=== PATIENT | female | born 1945 | race Caucasian/White ===

== ENCOUNTER 2018-03-02 11:54 | Inpatient (IN) | payer OTHER, SELFPAY ==
[2018-02-16 08:49] VITALS: BMI 41.6
[2018-03-02] VITALS (17 sets, daily range): BP systolic 126–169; BP diastolic 77–91; PULSE 88–99; RESP 10–20; TEMP 36.1–37.1; O2SAT 91–99; BMI 41.6
--- NOTE | 2018-03-02 | DI.RAD.S_ITS ---
PROCEDURE: XR LUMBAR SPINE 2-3V INDICATIONS: XLIF L1-L5 TECHNIQUE: 2 intraoperative fluoroscopic views of the lumbar spine were acquired. COMPARISON: None. FINDINGS: 2 extremely limited spot fluoroscopic images were obtained of the lumbar spine. IMPRESSION: Fluoroscopic visualization of lumbar spine. Dictated by: Senia Salvador M.D. on 03/02/2018 at 19:22 Approved by: Senia Salvador M.D. on 03/02/2018 at 19:23
[2018-03-02] MEDS: LACTATED RINGERS 1,000 ML 42 ML IV ×3 (12:35→16:49)
--- NOTE | 2018-03-02 12:40 | PM.PREOP ---
Pre-operative Note Interval Note Pre-op Check: Yes History & Physical Reviewed by Physician and Yes Exam Performed Changes: No
--- NOTE | 2018-03-02 13:37 | P.OP_ITS ---
Operative Date/Time/Diagnoses Date of procedure: 03/02/18 Time of procedure: 16:14 Pre-op diagnosis: lumbar stenosis with radiculopathy lumbar scoliosis Post-op diagnosis: same Procedure & Clinicians Procedure: L1-2, L2-3, L3-4, L4-5 anterior fusion with cages Same procedure as scheduled: Yes Indications: [age] year old female with intractable pain from stenosis. They had failed conservative management and requested operative intervention. Risks and benefits of surgery were discussed and appropriate consents were obtained. Surgeon: Shon Roper Optical Effects Camera Operator: Lindsey Richardson Anesthesia Type: General Operative Notes Findings: none Closure Type: primary Specimen(s): none sent Applied: catheter Estimated Blood Loss (mL): 20 Blood products transfused: none Procedure in detail: Patient was brought to the operating room and intubated on the table. Time-out was performed. They were then rolled over to the lateral decubitus position with the [id number]. The table was bent and they were taped down in the correct position. X-rays were taken to confirm a true AP and lateral. Preoperative antibiotics were given. The right flank was prepped and draped in standard sterile fashion. Using fluoroscopy, a 3 cm incision was made above the iliac crest. We bluntly dissected down with Metzenbaum scissors and split the 3 abdominal muscle layers. We dissected out the retroperitoneal space and using finger guidance, brought our 1st dilator down to the psoas muscle. Using neuromonitoring and fluoroscopy, we placed it through the psoas onto the L4-5 disc space in an anterior position and gradually pulled the dilator posteriorly along the disc space. We placed our guidewire and measured our depth for the retractor. We then dilated with the next 2 dilators and then placed our retractor over the dilators. Position was confirmed with fluoroscopy and the retractor was locked down to the bar. We opened up the retractor and checked with neuro monitoring. We then placed the su and again checked with neuro monitoring. The retractor was opened further and the ALL retractor was placed. An annulotomy was performed. We then performed a complete diskectomy with ring curette, pituitary, box osteotome. A Kauffman was advanced across the disc space under fluoroscopy to release the lateral annulus on the opposite side. We then used sequentially larger trials and confirmed under fluoroscopy. An XLIF cage was packed with Osteocell bone graft and impacted into the L4-5 disc space with fluoroscopy for the anterior fusion at this level. The wound was irrigated. The retractor was closed down. The su was removed. We carefully removed the retractor with direct visualization to make sure there was no neurovascular or abdominal injury. We then repeated the procedure at L1-2. Again we use dilation, opening retractor, complete diskectomy with lateral release, and placement of the cage packed with bone graft for the anterior fusion at L1-2. We went down to L2-3 at that point. We have the same procedure with dilation, opening the retractor, diskectomy with lateral release, and placement of the cage packed with bone graft for the anterior fusion at L2-3. The cage was not advancing very far and it actually broke approximately [address]. We removed the lateral fragments and was still well contained within the disc space and had enough support that I did not want to try removing it.. We then went down to L3-4 and again did dilation, retractor, diskectomy, release, and placement of the cage packed with bone graft for the anterior fusion at L3-4. The wound was irrigated at every level. We carefully removed the retractors at every level. Final x-rays were taken. The muscle fascia was closed, superficial tissue was closed. The skin was closed. Sterile dressing was placed. The patient was then rolled over, extubated, brought to the recovery room with no complications. Complications: none Condition: stable Disposition: PACU Plan for aftercare: Inpatient. Up with physical therapy as tolerated. Plan to return to operating room on for posterior portion of surgery.
[2018-03-02] MEDS: CEFAZOLIN 2 GM/100 ML FROZ.PIGGY IV ×2 (13:48→20:56)
[2018-03-02] MEDS: SODIUM CHLORIDE 0.9% 1,000 ML, GENTAMICIN 80 MG IRR (14:34)
[2018-03-02] MEDS: BUPIVACAINE 0.5% (PF) 20 ML, BUPIVACAINE LIPOSOME 266 MG INJ (14:34)
--- NOTE | 2018-03-02 14:44 | SUR.OPER ---
Left lateral on padded OR table. Head on pillow, gel axillary roll, pillow to support right arm. Legs flexed, pillows between legs, gel pad under down leg and ankle. Multiple passes of 3 inch cloth tape across shoulder, hip, upper and lower legs to secure patient on OR table.
[2018-03-02] MEDS: THROMBIN (BOVINE) 5,000 UNIT VIAL 5000 UNIT TOP (14:57)
--- NOTE | 2018-03-02 17:06 | SUR.PHASEI ---
verbal order to infuse 500 cc LR open wide in recovery
[2018-03-02] MEDS: LORazepam 2 MG/ML SYRINGE 0.25 MG IV ×2 (17:30→18:45)
--- NOTE | 2018-03-02 18:08 | RT ---
Addendum entered by Nader Posey, RT 03/02/18 18:30: Pt placed to Hospital CPAP unit, 10 lpm o2 bleed in. Resp rate 10, pjlse 89, O2 sats 98%. Pt still slightly responsive. Nasal airway remains, Nurse Sadaf remains vigilant at bedside. Original Note: Called to PACU by Nurse Sadaf and Nurse Hawthorne, pt needs CPAP. Pt is post op back surgery. Upon entering, pt's has loud sonorous snore, with moderate airway obstruction. Needs jaw thrust. Pt wakes slightly to verbal stimuli, but does not respond appropriately. Nasal airway inserted to L nare (7.0) without difficulty. Resp rate 10-14 Nurse Hawthorne contacted duty anesthesiologist, Dr. Gibbons to inform and obtain order. Put CPAP, per Nurses. Pt placed to auto with 10 lpm bleed in.
--- NOTE | 2018-03-02 18:25 | SUR.PHASEI ---
Addendum entered by Berta Edwards R.N. 03/02/18 18:28: RT arrived at 1750 Original Note: RT called to bedside to place patient on cpap per order from Dr. Campos, he placed a nasal trumpet in left nare and placed patient on cpap with O2 at 15 L. patient tolerating well.
[2018-03-02] MEDS: NALOXONE 0.4 MG/ML VIAL 0.2 MG IV ×2 (19:00→19:05)
--- NOTE | 2018-03-02 20:06 | SUR.PHASEI ---
1800 spoke to Nguyen Nursing material crew supervisor prior to giving Narcan as instructed by anesthesia Regulo, as to Narcan protocol for floor patients she stated that it was fine to give Narcan then go to floor with patient, if they need more the floor nurses can give it. Patient went to floor approx 1 hour post last narcan dose . no problems noted. patient eatting ice and talking appropriately.
[2018-03-02] MEDS: LACTATED RINGERS 1,000 ML 125 ML IV (20:34)
[2018-03-03] VITALS (7 sets, daily range): BP systolic 113–137; BP diastolic 57–78; PULSE 78–97; RESP 15–22; TEMP 36.3–36.9; O2SAT 93–96
[2018-03-03] MEDS: HYDROMORPHONE 1 MG INJ 0.2 MG IV (00:02)
[2018-03-03] MEDS: HYDROCODONE/ACET 5/325 TABLET 1 TAB PO ×2 (04:48→09:39)
[2018-03-03] MEDS: LACTATED RINGERS 1,000 ML 125 ML IV (04:51)
[2018-03-03] MEDS: CEFAZOLIN 2 GM/100 ML FROZ.PIGGY IV (05:38)
[2018-03-03 07:35] LABS: Hematocrit 37.2 % (36-46); Hemoglobin 12.2 g/dL (12.0-16.0)
[2018-03-03 07:46] LABS: BUN Creatinine Ratio 13.8 (6-22); Blood Urea Nitrogen 11 mg/dL (7-17); Calcium 7.9 mg/dL (8.4-10.2); Carbon Dioxide 31 mmol/L (22-32); Chloride 101 mmol/L (98-107); Estimated Glomerular Filt Rate > 60.0 mL/min (>60); Glucose 122 mg/dL (80-110); HEMOLYSIS 24 (0-50); Potassium 3.6 mmol/L (3.4-5.1); Sodium 143 mmol/L (137-145)
--- NOTE | 2018-03-03 08:12 | PM.PNPO.1 ---
Subjective Date Patient Seen: 03/03/18 Time Patient Seen: 08:12 Interval history: Pain not bad. Sore rolling over. No more vomiting but still some nausea and anxiety about vomiting. Exam Vital Signs (past 8 hours): - 03/03/18 00:33 03/03/18 04:00 Temperature 98.4 F 97.6 F Pulse Rate 97 H 93 H Respiratory Rate 22 20 Blood Pressure 126/78 125/70 Pulse Oximetry 93 94 Oxygen Delivery Method Nasal Cannula Oxygen Flow Rate 3 Const Orientation: alert and oriented x3 Back/Spine/Pelvis Other: dressing CDI. 5/5 motor BLE Objective Labs Result Diagrams: 03/03/18 06:43 03/03/18 06:43 Labs: Laboratory Results - last 24 hr 03/03/18 03/03/18 06:43 06:43 Hgb 12.2 Hct 37.2 Sodium 143 Potassium 3.6 Chloride 101 Carbon Dioxide 31 BUN 11 Creatinine 0.80 Estimated GFR > 60.0 BUN/Creatinine Ratio 13.8 Glucose 122 H Calcium 7.9 L Assessment & Plan Post-op Postoperative Procedures Operation Date: 03/02/18 14:00 Actual Procedures Side Surgeon p L1-2,L2-3,L3-4,L4-5 Anterior Instru. Fusion(XLIF) Right Shon Roper MD Stable after day one of staged front/back scoliosis surgery. She's doing well for now. Up and mobilize with PT. Plan to return to OR tomorrow for L1-S1 posterior fusion and laminectomies. Operation Date: 03/04/18 07:45 <No data on this case meets the specified criteria>
[2018-03-03] MEDS: ONDANSETRON 4 MG/2 ML INJ IV (08:52)
[2018-03-03] MEDS: CELECOXIB 200 MG CAPSULE PO ×2 (09:40→21:47)
[2018-03-03] MEDS: DOCUSATE 100 MG CAPSULE PO ×2 (09:40→21:47)
[2018-03-03] MEDS: hydroCHLOROthiazide 25 MG TABLET PO (09:40)
--- NOTE | 2018-03-03 11:55 | PT.IIE ---
Current Diagnoses Scoliosis, unspecified (03/02/18) Spinal stenosis, lumbar region with neurogenic claudication (03/02/18) Surgery Performed Operation Date: 03/02/18 14:00 Actual Procedures p L1-2,L2-3,L3-4,L4-5 Anterior Instru. Fusion(XLIF)(Right) - Shon Roper MD Operation Date: 03/04/18 07:45 <No data on this case meets the specified criteria> Surgical History (Last Updated 02/16/18 @ 09:13 by Tammie Crandall RN) History of colonoscopy (Acute) Hx of tonsillectomy (Acute) Medical History (Last Updated 02/16/18 @ 09:13 by Tammie Crandall RN) Arthritis (Acute) Edema (Acute) HTN (hypertension) (Acute) Kidney stones (Acute) Numbness (Acute) Pneumonia (Acute) Rosacea (Acute) Sciatica (Acute) Scoliosis (Acute) Physical Therapy Inpatient Evaluation/Re-Eval M1 PT/OT-IP Prior Functional Status Start: 03/03/18 11:37 Freq: Status: Active Protocol: Document 03/03/18 11:38 AMH (Rec: 03/03/18 11:54 [facility] [id number]) Medical Review Prior Functional Status Medical History Reviewed Yes Diet/Fluid Consistency Regular Prior Functional Level (Other details) The patient is a 72 year old female who has been in chronic pain for years with her low back Social History Household Members none Living Arrangements House Number of Floors (Floors) Two Floors M2 PT-IP Current Condition Start: 03/03/18 11:37 Freq: Status: Active Protocol: Document 03/03/18 11:38 AMH (Rec: 03/03/18 11:54 [facility] [id number]) Physical Therapy Current Condition Current Condition Evaluation Date 03/03/18 Precautions Lumbar Precautions No Twisting Other Precautions log roll Weight Bearing Status Weight Bearing Status Full Weight Bearing M3 PT-IP Subjective Start: 03/03/18 11:37 Freq: Status: Active Protocol: Document 03/03/18 11:38 AMH (Rec: 03/03/18 11:54 [facility] [id number]) Subjective Physical Therapy Visit Type Type Initial Evaluation Visit Start Time 10:50 Visit Stop Time 11:20 Total Visit Minutes 30 Therapy Pain Assessment Pain When Pain Assessed pain 1/10 Pain Present Pain Present Pain Reported M4 PT-IP Mobility and Gait Start: 03/03/18 11:37 Freq: Status: Active Protocol: Document 03/03/18 11:38 AMH (Rec: 03/03/18 11:54 [facility] [id number]) PT-Bed Mobility Assessment Rolling Type of Rolling Log Rolling Supine to Sit Supine to Sit Moderate Assistance Scooting Scooting Up and Down in Bed Minimal Assistance PT-Transfer Assessment Sit to and From Stand Sit to and from Stand Contact Guard Assistance Equipment Transfer Assistive Device Gait Belt Front Wheeled Walker Transfer Ability Level of Assist Minimal Assistance Comments Mobility Comments The patient was able to follow all commands for log roll to the left, (the incision is on her right side) and was min A for transfers Gait Assessment Gait Gait Assistance Required: Contact Guard Assist Distance (Feet) 4 Able to Maintain Weight Bearing Status Yes During Gait Assistive Devices Assistive Device Front Wheeled Walker Orthotic/Prosthetic Devices or Brace: No M5 PT-IP Objective Assessments Start: 03/03/18 11:37 Freq: Status: Active Protocol: Document 03/03/18 11:38 AMH (Rec: 03/03/18 11:54 [facility] [id number]) Gross Range of Motion Lower Extremity ROM Assessment Right Impaired Impairments decreased Right leg hip and knee flexion due to pain from incision on the right Other Assessments Other Other Assessments The patient was educated on log rolls and transfered from bed to the bedside chair with min A. She will return to surgery tomorrow for posterior fusion. The patient will then go home with a friend for a week. She lives in [place] [id number] PT-IP Treatment Start: 03/03/18 11:37 Freq: Status: Active Protocol: Document 03/03/18 11:38 AMH (Rec: 03/03/18 11:54 [facility] [id number]) Physical Therapy Treatment Exercises Exercises Ankle Pumps Quad Sets Heel Slides Education Education Provided Precautions Safety M7 PT-IP Assessment and Plan Start: 03/03/18 11:37 Freq: Status: Active Protocol: Document 03/03/18 11:38 AMH (Rec: 03/03/18 11:54 [facility] [id number]) PT Summary Assessment and Plan Potential Rehabilitation Potential Excellent Status of Condition at Evaluation Stable Summary Impairments Pain ROM Strength Bed Mobility Transfers Activity Tolerance Assessment Summary 72 year old female s/p anterior fusion from L1-L5, she will return to surgery tomorrow for posterior repair. She was able to perform log rolling today and demonstrate good form with fww for transfers. She anticipates going home with a friend for a week following surgery. Goals Bed Mobility Goal Independent Transfer Goal Standby Assistance Gait Goal Contact Guard Assistance Gait Distance 50 feet Days to Meet Goals 3 Frequency of Treatment Frequency Of Treatment Twice a Day Treatment Plan Physical Therapy Treatment Plan Bed Mobility Training Transfer Training Gait Training Therapeutic Exercise Post Op Education Recommendations To Nursing Amount of Assist Needed 1 Person Assist Discharge Recommendations PT Discharge Recommendations Home with Assistance Equipment Needed for Home Before fww Discharge
--- NOTE | 2018-03-03 13:32 | OT.IP.TRT ---
Current Diagnoses Scoliosis, unspecified (03/02/18) Spinal stenosis, lumbar region with neurogenic claudication (03/02/18) Surgery Performed Operation Date: 03/02/18 14:00 Actual Procedures p L1-2,L2-3,L3-4,L4-5 Anterior Instru. Fusion(XLIF)(Right) - Shon Roper MD Operation Date: 03/04/18 07:45 <No data on this case meets the specified criteria> Occupational Therapy Treatment Note M3 OT- IP Subjective and Pain Start: 03/03/18 13:30 Freq: Status: Active Protocol: Document 03/03/18 13:30 PJM (Rec: 03/03/18 13:32 PJM [id number]) OT- Subjective Occupational Therapy Visit Type Type Administrative Note Visit Start Time 13:30 Notes OT referral received on pt s/p L1-5 anterior fusion. Pt to return to surgery tomorrow for stage 2 surgery for posterior fusion. Will hold OT evaluation of self care skills until after 2nd surgery as medical status permits. No charge.
--- NOTE | 2018-03-03 13:49 | CM.DANOTE ---
Discharge Planning/Care Management DCP: assessment: Case received, EMR reviewed and met this morning with pt. Introduced self and role. Pt is a 72 year old female who admitted yesterday for a planned spinal surgery: in 2 parts. Surgeon: Dr. Roper Payer: Yassine ADAMS. Part 2 of the surgical process is planned for tomorrow. Pt identifies her post hospital plan as home with a friend to help. OT and PT are ordered. P: follow as POC including therapy unfold to assist with d/c issues and options that may arise, noting pt does plan for home with friend. CM Discharge Assessment Start: 03/03/18 13:48 Freq: Status: Active Protocol: Document 03/03/18 13:48 ITV (Rec: 03/03/18 13:49 ITV [id number]) Discharge Planning Assessment History Provided By Patient Medical Record Prior Living Arrangements House Household Members none Whiteboard Updated in Patient Room with Yes name and ext. # of Yarn Hauler Review Status In Process Next Review Type Continued Stay Review Pre-Anesthesia Assessment Start: 02/16/18 08:49 Freq: Status: Complete Protocol: Document 02/16/18 08:49 CAB (Rec: 02/16/18 09:45 CAB [id number]) Pre-Anesthesia Assessment Patient Information Reviewed Via Phone Assessment Assessment Completed With Patient Lab Results BMP/CMP CBC EKG Primary Care Provider Lina aBlderas Medical Clearance Received Yes Seen Specialist in Last 12 Months Yes Specialist Seen Orthopedist Comment PCP note to med records to be scanned to chart Primary Language Kosovan Rug Repairer Required No Height 166.37 cm Weight 115.212 kg Body Mass Index (BMI) 41.6 Hearing Ability Normal Visual Assist Glasses Dentition Type Teeth, Natural Present Barriers to Learning Visual Hx Anesthesia Reactions No Hx Family Anesthesia Reaction No Hx Malignant Hyperthermia No Hx Blood Transfusions No Anesthesia Review Requested No Gelatin Dynamite Packing Operator No alcohol intake current alcohol intake frequency a few times a month Smoking Status Never smoker Substance Use Type does not use Pain Present Pain Reported Musculoskeletal Symptoms Abnormal Gait Difficulty Walking Muscle Weakness Numbness Radiating Pain into Limb History of Falling (Recent or History of No ) Patient is completely paralyzed or No completely immobile Prosthesis or Orthotic Device Cane Mental Status Oriented to own ability Is patient on oxygen? No Does patient have SANTOS/SOB Yes: r/t to deconditioning recently w/back pain Hx Sleep Apnea No Suspected Sleep Apnea No Currently Taking a Beta Robbie No Can You Climb a Flight of Stairs Without No: r/t to deconditioning SOB recently w/back pain Hx Chest Pain No Hx SOB Yes: r/t to deconditioning recently w/back pain Hx Syncope or Dizziness No Anti-Coagulant Therapy No Has a Correctional Officer Sergeant No Cardiac Testing No Hx Pacemaker/ICD No Pacemaker Rep Required? No Cardiac Clearance Received Not Applicable Diet Type At Home Regular dysphagia No Bladder Pattern Frequency Incontinent Nocturia Urgency Urinary Catheter Present No Hx Urinary Self Catheterization No Diabetes No Patient No Lactating No Hx Drug Resistant Organism No Presence of External or Internal Medical No Devices Have you traveled outside the [facility] in the last 30 days? Marital Status Lives With none Prior Living Arrangements House Number of Floors (Floors) Two Floors Number of Stairs To Enter/Railing? 10 stairs, railing present Support System Friend(s) Patient Discharge Plan Description Other Comment Friend will stay w/pt to assist w/care, will stay at the [facility] home Feels Safe in Current Environment Yes Been Physically Hurt or Threatened By a No Person in Current Environment Do you have thoughts of harming yourself None or others? Are you currently considering suicide? No Do you have a plan to hurt yourself or No Plan others? Do You Have Any Spiritual Beliefs That No May Affect Your HC Choices? Do You Have Any Cultural Practices That No May Affect Your HC Choices? Spiritual Referral None Comment Hindu Who Can We Speak to About Patient's Care Family, friends Identifying Code for Release of Patient Declines to issue Information Health Care Proxy/Next of Kin Dino Kaplan (brother) Health Care Proxy Emergency Contact Name Dino Kaplan (brother) Emergency Contact Advance Directives? No: Information mailed to patient Requested Patient Bring Advanced Yes Directives DOS Power of Marketing Communications Manager No PAC Instructions Durable medical equipment Medications to take/avoid Nasal antibiotic No ETOH/petroleum product on skin DOS NPO Post-op transportation Pre-surgical wash Sensory aids Sturdy shoes/comfortable clothes Do not bring valuables and remove jewelry
--- NOTE | 2018-03-03 14:35 | PT.IPTN ---
Current Diagnoses Scoliosis, unspecified (03/02/18) Spinal stenosis, lumbar region with neurogenic claudication (03/02/18) Surgery Performed Operation Date: 03/02/18 14:00 Actual Procedures p L1-2,L2-3,L3-4,L4-5 Anterior Instru. Fusion(XLIF)(Right) - Shon Roper MD Operation Date: 03/04/18 07:45 <No data on this case meets the specified criteria> Physical Therapy Treatment Note M2 PT-IP Current Condition Start: 03/03/18 11:37 Freq: Status: Active Protocol: Document 03/03/18 11:38 AMH (Rec: 03/03/18 11:54 AMH [email or web address]) Physical Therapy Current Condition Current Condition Evaluation Date 03/03/18 Precautions Lumbar Precautions No Twisting Other Precautions log roll Weight Bearing Status Weight Bearing Status Full Weight Bearing M3 PT-IP Subjective Start: 03/03/18 11:37 Freq: Status: Active Protocol: Document 03/03/18 14:35 GGD (Rec: 03/03/18 15:58 GGD [id number]) Subjective Physical Therapy Visit Type Type Treatment Note Visit Start Time 14:20 Visit Stop Time 14:35 Total Visit Minutes 15 Number of LOAN FUNDER Visits 1 Physical Therapy Visit Comments Patient Comments Pt states she would like to stay in the chair. Therapy Pain Assessment Pain When Pain Assessed At Rest Pain Present Pain Present Pain Reported M4 PT-IP Mobility and Gait Start: 03/03/18 11:37 Freq: Status: Active Protocol: Document 03/03/18 14:35 GGD (Rec: 03/03/18 15:58 GGD [id number]) PT-Transfer Assessment Sit to and From Stand Sit to and from Stand Contact Guard Assistance Equipment Transfer Assistive Device Gait Belt Front Wheeled Walker Orthotic/Prosthetic Devices or Brace: No Transfers Transfer Destination Chair Transfer Technique y Transfer Ability Level of Assist Minimal Assistance Gait Assessment Gait Gait Assistance Required: Contact Guard Assist Distance (Feet) 50 Able to Maintain Weight Bearing Status Yes During Gait Assistive Devices Assistive Device Front Wheeled Walker Orthotic/Prosthetic Devices or Brace: No Gait Deviations General Gait Pattern Antalgic Decreased Stride Length Flexed Trunk Factors Limiting Gait Function Factors Limiting Gait Function Decreased Activity Tolerance Decreased Strength Pain M5 PT-IP Objective Assessments Start: 03/03/18 11:37 Freq: Status: Active Protocol: Document 03/03/18 11:38 AMH (Rec: 03/03/18 11:54 AMH [email or web address]) Gross Range of Motion Lower Extremity ROM Assessment Right Impaired Impairments decreased Right leg hip and knee flexion due to pain from incision on the right Other Assessments Other Other Assessments The patient was educated on log rolls and transfered from bed to the bedside chair with min A. She will return to surgery tomorrow for posterior fusion. The patient will then go home with a friend for a week. She lives in [place] [id number] PT-IP Treatment Start: 03/03/18 11:37 Freq: Status: Active Protocol: Document 03/03/18 14:35 GGD (Rec: 03/03/18 15:58 GGD [id number]) Physical Therapy Treatment Education Education Provided Precautions M7 PT-IP Assessment and Plan Start: 03/03/18 11:37 Freq: Status: Active Protocol: Document 03/03/18 14:35 GGD (Rec: 03/03/18 15:58 GGD [id number]) PT Summary Assessment and Plan Summary Assessment Summary Pt need cues for mobility. She was able to increase her gait distance. She had heavy use of UE on FWW with gait. She had mild unsteadiness with gait. Frequency of Treatment Frequency Of Treatment Twice a Day Treatment Plan Physical Therapy Treatment Plan Bed Mobility Training Transfer Training Gait Training Therapeutic Exercise Post Op Education Recommendations To Nursing Amount of Assist Needed 1 Person Assist Discharge Recommendations PT Discharge Recommendations Home with Assistance
[2018-03-03] MEDS: SENNOSIDES 8.6 MG TABLET 17.2 MG PO (21:47)
[2018-03-04] VITALS (20 sets, daily range): BP systolic 106–137; BP diastolic 59–87; PULSE 16–117; RESP 15–20; TEMP 36.4–37.7; O2SAT 92–98; BMI 41.6
[2018-03-04] MEDS: LACTATED RINGERS 1,000 ML 125 ML IV ×4 (07:00→17:17)
--- NOTE | 2018-03-04 07:02 | SUR.HOLD ---
PT HAS SILVA, SECURELY STRAPPED TO LEFT UPPER THIGH, YELLOW CLEAR URINE 125CC,
--- NOTE | 2018-03-04 07:28 | PM.PREOP ---
Pre-operative Note Interval Note Pre-op Check: Yes History & Physical Reviewed by Physician and Yes Exam Performed Changes: No
[2018-03-04] MEDS: APREPITANT 40 MG CAPSULE PO ×2 (07:50)
[2018-03-04] MEDS: CEFAZOLIN 2 GM/100 ML FROZ.PIGGY IV ×2 (08:10→18:16)
--- NOTE | 2018-03-04 08:46 | SUR.OPER ---
Prone on spine table, head in foam head support, padded chest and pelvic supports, gel pad at knees, lower legs supported by pillows; nipples, genitalia and toes free of pressure, arms secured on foam padded arm boards at <90 degrees abduction. Tape over blanket at thigh secured to table.
--- NOTE | 2018-03-04 09:04 | SUR.OPER ---
in room delay due to patient having issue with medication in preop
[2018-03-04] MEDS: SODIUM CHLORIDE 0.9% 1,000 ML, GENTAMICIN 80 MG IRR ×2 (10:11→10:15)
[2018-03-04] MEDS: THROMBIN (BOVINE) 5,000 UNIT VIAL 5000 UNIT TOP (10:16)
--- NOTE | 2018-03-04 11:52 | PT.IPTN ---
Current Diagnoses Scoliosis, unspecified (03/02/18) Spinal stenosis, lumbar region with neurogenic claudication (03/02/18) Surgery Performed Operation Date: 03/02/18 14:00 Actual Procedures p L1-2,L2-3,L3-4,L4-5 Anterior Instru. Fusion(XLIF)(Right) - Shon Roper MD Operation Date: 03/04/18 07:45 Actual Procedures p L1-2,L2-3,L3-4,L4-5,L5-S1 Posterior Instru. Fusion w/Bone Graft, L1-S1 Laminectomies - Shon Roper MD Physical Therapy Treatment Note M2 PT-IP Current Condition Start: 03/03/18 11:37 Freq: Status: Active Protocol: Document 03/03/18 11:38 [facility] (Rec: 03/03/18 11:54 [facility] [id number]) Physical Therapy Current Condition Current Condition Evaluation Date 03/03/18 Precautions Lumbar Precautions No Twisting Other Precautions log roll Weight Bearing Status Weight Bearing Status Full Weight Bearing M3 PT-IP Subjective Start: 03/03/18 11:37 Freq: Status: Active Protocol: Document 03/04/18 11:49 GGD (Rec: 03/04/18 11:51 GGD [id number]) Subjective Physical Therapy Visit Type Notes Pt in surgery, will wait for new orders. Protocol: Document 03/03/18 14:35 GGD (Rec: 03/03/18 15:58 GGD [id number]) Physical Therapy Treatment Education Education Provided Precautions M7 PT-IP Assessment and Plan Start: 03/03/18 11:37 Freq: Status: Active Protocol: Document 03/04/18 11:49 GGD (Rec: 03/04/18 11:51 GGD [id number]) PT Summary Assessment and Plan Frequency of Treatment Frequency Of Treatment Discharge
[2018-03-04] MEDS: BUPIVACAINE 0.5% (PF) 4 ML, MORPHINE-PF 4 MG, BUTORPHANOL 1 MG, fentaNYL 100 MCG INJ (12:32)
--- NOTE | 2018-03-04 13:32 | DI.RAD.S_ITS ---
PROCEDURE: XR LUMBAR SPINE 2-3V INDICATIONS: L1-S1 POSTERIOR FUSION WITH L5-S1 TLIF FINDINGS: 4 limited intraoperative fluoroscopically stored images of the lumbar spine were obtained for intraoperative hardware localization purposes. These images are not meant for diagnostic purposes. Intraoperative findings related to a L1-S1 posterior lumbar fusion procedure are present. IMPRESSION: Intraoperative images obtained during the patient's lumbar fusion procedure. Dictated by: Dilip Juarez M.D. on 03/04/2018 at 13:46 Approved by: Dilip Juarez M.D. on 03/04/2018 at 13:49
[2018-03-04] MEDS: VANCOMYCIN 1,000 MG VIAL 1000 MG TOP (13:38)
--- NOTE | 2018-03-04 14:11 | P.OP_ITS ---
Operative Date/Time/Diagnoses Date of procedure: 03/04/18 Time of procedure: 13:59 Pre-op diagnosis: lumbar stenosis with radiculopathy lumbar scoliosis Post-op diagnosis: same Procedure & Clinicians Procedure: L1-2, L2-3, L3-4, L4-5 posterior fusion L5-S1 TLIF (post/post innerbody fusion) with cage L1, L2, L3, L4, L5, S1 screws L1-2, L2-3, L3-4, L4-5, L5-S1 laminectomy Use of microscope Iliac crest bone graft aspirate Placement of epidural catheter Same procedure as scheduled: Yes Indications: [age] year old female with intractable pain from stenosis. They had failed conservative management and requested operative intervention. Risks and benefits of surgery were discussed and appropriate consents were obtained. She had stage I of her operation 2 days ago and returned today for the posterior half. Surgeon: Shon Roper Anesthesia Type: General Operative Notes Findings: None Closure Type: primary Specimen(s): none sent Implants & Drains: NuVasive Reline screws and MAS PreCept screws Globus Rise cage Applied: catheter Estimated Blood Loss (mL): 500 Blood products transfused: none Procedure in detail: The patient was brought to the operating room and intubated on the table. A time-out was performed. They were then rolled over to the well-padded John table in the prone position. Preoperative antibiotics were given. The back was prepped and draped in the standard sterile fashion. A 15 cm incision was made in the midline. We dissected down the left sided paraspinals to expose the lamina out over the facets to the transverse processes. A marker was placed to confirm positioning. A bur was used to decorticate the junction of the transverse process and facet. We then advanced a gear shifter down the left pedicle of L1 using neuromonitoring. We then checked with a ball probe for a floor and four carlton. We then tapped and again checked with a ball probe. A bur was used to decorticate the transverse process and the Reline open screw was placed into the pedicle. The same technique was used to place screws in the L2, L3, L4, L5, and S1 pedicles. A jeff was placed and locked down at every level except for S1 so we could distract over it. We brought in the microscope. Using a combination of bur and Kerrison rongeur a laminectomy was performed from the left side at L5-S1. We cleared over past the midline and carefully depressed the dura until we were able to decompress the opposite side. We cleared out the neural foramen. She was still extremely tight and we had to perform a near complete facetectomy to open this up. This completed the laminectomy at L5-S1. This was separate and distinct from the TLIF approach as we were decompressing the canal and the nerves. We then began the TLIF prep. We finished off the facetectomy on this side at L5 -S1. We carefully cleaned up the remainder of the foramen until we could easily retract the exiting root as well as clearing medially below the dura and expose the disc space. The disc was prepped with bipolar and then an annulotomy was performed. We performed a diskectomy using a combination of paddles, tyesha, Kerrison, and curettes. We distracted the disc using a paddle as well as distracting across the screws and locked the S1 screw in an open position. We then filled the disc space with Osteocell bone graft. We then placed the globus Rise cage under fluoroscopy and then filled this in with more bone graft. The distraction across the screws was released and the S1 screw was locked down permanently. This completed the posterior interbody fusion portion of the TLIF at L5-S1. She was still tight and neural foramen from the posterior osteophyte off of L5. This was removed with a osteotome and Kerrison rongeur and then the nerve root was completely free. We did performed a left-sided laminectomy at L4-5, L3-4, L2-3, and L1-2. This was done with a bur and Kerrison rongeurs. We carefully retracted and cleared out the neural foramen, although they were much more open after our anterior fusion from 2 days ago. We carefully depress the dura and reach across and removed the ligamentous and facet thickening on the opposite side. At the end we could run the ball probe cephalad caudally and out the foramen and everything was opened. The wound was copiously irrigated. A small stab incision was made over the PSIS. We used a Jamshidi needle to aspirate several mL of bone marrow from the pelvis. This was mixed with the remaining Osteocell and combined with all of the locally harvested bone graft as well as 30 cc of bone chips and placed in the posterolateral gutter for the posterior fusion of the TLIF at L5-S1 and a posterior fusion from L1 through L5. An epidural catheter was then placed in the spinal canal by carefully depressing the dura and advancing it 6 cm cephalad under the remaining lamina without resistance. The muscle fascia was closed. The catheter was then injected with a solution containing 4 mL of 0.5% Marcaine, 1 mg Stadol, 4 mg Duramorph, and 100 mcg of fentanyl. This was injected without resistance and the catheter was pulled. We then used fluoroscopy and made another 15 cm longitudinal incision now over on the right side. We used Bovie to split down to the fascia. We then percutaneously placed Jamshidi needles down the right pedicles of L1 through S1. It was switched out to guidewires. We tapped and then placed our MAS Precept screws also with monitoring and fluoro down the right pedicles of L1 through S1. We then placed a jeff and locked it down. Final x-rays were taken. The wound was irrigated and the fascia was closed. Vancomycin powder was placed in the wounds. The superficial and skin were closed. A sterile dressing was placed. The patient was then rolled over extubated and brought to recovery room without complications. Complications: none Condition: stable Disposition: PACU Plan for aftercare: Inpatient. Up with physical therapy. Anticipate 3-4 more days in the hospital
--- NOTE | 2018-03-04 16:29 | SUR.PHASEI ---
Pt d/c'd from Phase I at 1612. Report given to JESUS Carter on acute care floor. Bedside update given and wound site checked with Emma. Pt hemodynamically stable upon transfer to acute care floor. IV team was contacted by acute care floor and they are aware that order for PICC was placed today by Dr Roper.
[2018-03-04] MEDS: GABAPENTIN 300 MG CAPSULE PO (20:25)
[2018-03-04] MEDS: hydroCHLOROthiazide 25 MG TABLET PO (20:25)
[2018-03-04] MEDS: CELECOXIB 200 MG CAPSULE PO (20:41)
[2018-03-04] MEDS: HYDROMORPHONE 1 MG INJ 0.2 MG IV (20:57)
[2018-03-05] VITALS (11 sets, daily range): BP systolic 105–119; BP diastolic 57–66; PULSE 80–94; RESP 16–24; TEMP 36.5–36.9; O2SAT 95–100
[2018-03-05] MEDS: CEFAZOLIN 2 GM/100 ML FROZ.PIGGY IV (00:43)
[2018-03-05] MEDS: LACTATED RINGERS 1,000 ML 125 ML IV (02:21)
--- NOTE | 2018-03-05 06:11 | PC.NURSE ---
pt A&OX3. tolerating fluids. denied dizziness or lightheadedness. Urine dark andra color, 225cc out. Dressing to lower back cdi. R. arm edematous, arm wrap w/warm blanked, elevated w/pillow.
[2018-03-05 07:19] LABS: Hematocrit 33.3 % (36-46); Hemoglobin 10.7 g/dL (12.0-16.0)
[2018-03-05 07:27] LABS: BUN Creatinine Ratio 18.8 (6-22); Blood Urea Nitrogen 15 mg/dL (7-17); Calcium 7.6 mg/dL (8.4-10.2); Carbon Dioxide 29 mmol/L (22-32); Chloride 103 mmol/L (98-107); Estimated Glomerular Filt Rate > 60.0 mL/min (>60); Glucose 112 mg/dL (80-110); HEMOLYSIS 15 (0-50); Potassium 3.7 mmol/L (3.4-5.1); Sodium 140 mmol/L (137-145)
--- NOTE | 2018-03-05 08:13 | PM.PNPO.1 ---
Subjective Date Patient Seen: 03/05/18 Time Patient Seen: 08:13 Interval history: Pain is slowly creeping up to about 4/10, all across the back. No nausea Exam Vital Signs (past 8 hours): - 03/05/18 02:31 03/05/18 04:47 03/05/18 06:20 Temperature 98.0 F Pulse Rate 88 86 Respiratory Rate 16 18 Blood Pressure 119/65 105/60 Pulse Oximetry 95 95 95 Fraction of Inspired Oxygen 21 Oxygen Delivery Method Nasal Cannula Oxygen Flow Rate 2 Const Orientation: alert and oriented x3 Back/Spine/Pelvis Other: Dressing clean dry intact. 5/5 motor both lower extremities Objective Labs Result Diagrams: 03/05/18 06:43 03/05/18 06:43 Labs: Laboratory Results - last 24 hr 03/05/18 03/05/18 06:43 06:43 Hgb 10.7 L Hct 33.3 L Sodium 140 Potassium 3.7 Chloride 103 Carbon Dioxide 29 BUN 15 Creatinine 0.80 Estimated GFR > 60.0 BUN/Creatinine Ratio 18.8 Glucose 112 H Calcium 7.6 L Assessment & Plan Post-op Postoperative Procedures Operation Date: 03/02/18 14:00 Actual Procedures Side Surgeon p L1-2,L2-3,L3-4,L4-5 Anterior Instru. Fusion(XLIF) Right Shon Roper MD Operation Date: 03/04/18 07:45 Actual Procedures Side Surgeon p L1-2,L2-3,L3-4,L4-5,L5-S1 Posterior Instru. Fusion w/Bone Graft, L1-S1 Laminectomies Shon Roper MD she is doing very well after the 2nd stage of her scoliosis fusion. Mobilize with physical therapy today. She has had some acute blood loss anemia associated with surgery but still in a stable range. She is very hesitant to take pain medication due to severe side effects with nausea. We will try to limit this as much as possible as well as giving her nausea medication every time.
[2018-03-05] MEDS: TRAMADOL 50 MG TABLET PO (08:40)
[2018-03-05] MEDS: DOCUSATE 100 MG CAPSULE PO ×2 (08:43→21:18)
[2018-03-05] MEDS: CELECOXIB 200 MG CAPSULE PO ×2 (08:43→21:18)
[2018-03-05] MEDS: ONDANSETRON 4 MG/2 ML INJ IV ×2 (08:51→17:17)
[2018-03-05] MEDS: hydroCHLOROthiazide 25 MG TABLET PO (08:51)
[2018-03-05] MEDS: HYDROCODONE/ACET 5/325 TABLET 1 TAB PO (11:14)
--- NOTE | 2018-03-05 11:44 | PT.IPTN ---
Current Diagnoses Scoliosis, unspecified (03/02/18) Spinal stenosis, lumbar region with neurogenic claudication (03/02/18) Surgery Performed Operation Date: 03/02/18 14:00 Actual Procedures p L1-2,L2-3,L3-4,L4-5 Anterior Instru. Fusion(XLIF)(Right) - Shon Roper MD Operation Date: 03/04/18 07:45 Actual Procedures p L1-2,L2-3,L3-4,L4-5,L5-S1 Posterior Instru. Fusion w/Bone Graft, L1-S1 Laminectomies - Shon Roper MD Physical Therapy Treatment Note M2 PT-IP Current Condition Start: 03/03/18 11:37 Freq: Status: Active Protocol: Document 03/03/18 11:38 [facility] (Rec: 03/03/18 11:54 AMH [id number]) Physical Therapy Current Condition Current Condition Evaluation Date 03/03/18 Precautions Lumbar Precautions No Twisting Other Precautions log roll Weight Bearing Status Weight Bearing Status Full Weight Bearing M3 PT-IP Subjective Start: 03/03/18 11:37 Freq: Status: Active Protocol: Document 03/05/18 11:43 AB (Rec: 03/05/18 11:44 AB [id number]) Subjective Physical Therapy Visit Type Notes attempted to see pt fo PT and pt was on the phone and waved her hand for us not to interrupt her. informed pt that PT will come back later.
--- NOTE | 2018-03-05 14:00 | PT.IPRE ---
Current Diagnoses Scoliosis, unspecified (03/02/18) Spinal stenosis, lumbar region with neurogenic claudication (03/02/18) Surgery Performed Operation Date: 03/02/18 14:00 Actual Procedures p L1-2,L2-3,L3-4,L4-5 Anterior Instru. Fusion(XLIF)(Right) - Shon Roper MD Operation Date: 03/04/18 07:45 Actual Procedures p L1-2,L2-3,L3-4,L4-5,L5-S1 Posterior Instru. Fusion w/Bone Graft, L1-S1 Laminectomies - Shon Roper MD Surgical History (Last Updated 02/16/18 @ 09:13 by Tammie Crandall RN) History of colonoscopy (Acute) Hx of tonsillectomy (Acute) Medical History (Last Updated 02/16/18 @ 09:13 by Tammie Crandall RN) Arthritis (Acute) Edema (Acute) HTN (hypertension) (Acute) Kidney stones (Acute) Numbness (Acute) Pneumonia (Acute) Rosacea (Acute) Sciatica (Acute) Scoliosis (Acute) Physical Therapy Inpatient Evaluation/Re-Eval M1 PT/OT-IP Prior Functional Status Start: 03/03/18 11:37 Freq: Status: Active Protocol: Document 03/05/18 15:21 [facility] (Rec: 03/05/18 15:52 [facility] [id number]) Medical Review Prior Functional Status Medical History Reviewed Yes Diet/Fluid Consistency Regular Communication Independent. Mobility and Gait Pt states mostly did not use a device, however if standing for long periods of time would use a SPC. Activities of Daily Living and IADL's Per pt independent with increased time. Prior Functional Level (Other details) The patient is a 72 year old female who has been in chronic pain for years with her low back Social History Household Members none Living Arrangements House Number of Floors (Floors) Two Floors Number of Stairs To Enter/Railing? 10 stairs, railing present Pt states plans to go home to friend's house where there are no steps to enter the house. Home Environment Walk in Shower Home Equipment Raised Toilet Seat Without Armrests Additional Social History Comment Pt states friend Evangelina to be able to stay with her for one week at friend's house to assist. M2 PT-IP Current Condition Start: 03/03/18 11:37 Freq: Status: Active Protocol: Document 03/05/18 14:00 AB (Rec: 03/05/18 17:28 AB [id number]) Physical Therapy Current Condition Current Condition Evaluation Date 03/03/18 Treatment Diagnosis s/p L1-L5 anterior/posterior fusion, difficulty in walking Onset Date 03/02/18 Precautions Lumbar Precautions Log Roll No Twisting Limit Bending Lifting Restriction of 10 lbs Gait Belt above Incisional Area M3 PT-IP Subjective Start: 03/03/18 11:37 Freq: Status: Active Protocol: Document 03/05/18 14:00 AB (Rec: 03/05/18 17:28 AB [id number]) Subjective Physical Therapy Visit Type Type Re-Evaluation Visit Start Time 14:00 Visit Stop Time 14:27 Total Visit Minutes 27 Number of CUTTER OPERATOR BRICK Visits 0 Physical Therapy Visit Comments Patient Comments i am weak Therapy Pain Assessment Pain When Pain Assessed At Rest Pain Present Pain Present Pain Reported Location Back Intensity 5 Scale Used Numeric (1 - 10) Pain Management Techniques Re-positioning Timing of Activity with Medications M4 PT-IP Mobility and Gait Start: 03/03/18 11:37 Freq: Status: Active Protocol: Document 03/05/18 14:00 AB (Rec: 03/05/18 17:28 AB [id number]) PT-Bed Mobility Assessment Rolling Type of Rolling Log Rolling Level of Assist Maximal Assistance 2 Person Assistance Supine to Sit Supine to Sit Total Assistance 2 Person Assistance Head of Bed Elevated Bedrails Sit to Supine Sit to Supine Maximum Assistance Total Assistance 2 Person Assistance Head of Bed Elevated Bedrails Scooting Scooting to Edge of Bed Maximum Assistance Scooting Up and Down in Bed Dependent PT-Transfer Assessment Comments Mobility Comments BP in supine 154/87. pt assisted to sitting on EOB requiring max A x 2 and max cues. c/o nausea and dizziness and pt requested to lay back down. assisted pt requiring max A x 2 and max cues. positioned pt in bed. BP 107/61. checked BP again after ~ 3 min rest: 105/57. nurse aware. PT-Balance Assessment Sitting Balance and Reactions Static Sitting Balance Ability Good Dynamic Sitting Balance Ability Fair M5 PT-IP Objective Assessments Start: 03/03/18 11:37 Freq: Status: Active Protocol: Document 03/05/18 14:00 AB (Rec: 03/05/18 17:28 AB [id number]) Orientation Orientation/Cognition Level of Alertness Alert Orientation Name Age Birthday Month Date Year Day of Week Place Situation Safety Awareness Decreased Safety Awareness Gross Range of Motion Lower Extremity ROM Assessment Within Functional Limits Strength Lower Extremity Strength Assessment Bilaterally Impaired Comments Strength Comments BLE weakness R>L LLE: 4-/5 RLE 3+/5 Sensation Assessment Sensation Gross Sensation WNL M6 PT-IP Treatment Start: 03/03/18 11:37 Freq: Status: Active Protocol: Document 03/05/18 14:00 AB (Rec: 03/05/18 17:28 AB [id number]) Physical Therapy Treatment Education Education Provided Precautions Safety M7 PT-IP Assessment and Plan Start: 03/03/18 11:37 Freq: Status: Active Protocol: Document 03/05/18 14:00 AB (Rec: 03/05/18 17:28 AB [id number]) PT Summary Assessment and Plan Potential Rehabilitation Potential Fair Status of Condition at Evaluation Evolving Summary Impairments Pain ROM Strength Balance Coordination Sensation Tone Cognition Bed Mobility Transfers Gait Activity Tolerance Assessment Summary pt s/p L1-5 anterior fusion surgery 03/02/18 and then underwent L1-5 posterior fusion surgery 03/04/18. pt unable to tolerate much activity this session with c/o nausea and dizziness with decrease in BP noted. d/c plan depending on progress but at this time will require SNF rehab. will continue to assess. Goals Bed Mobility Goal Standby Assistance Transfer Goal Standby Assistance Front Wheeled Walker Gait Goal Standby Assistance Front Wheel Walker Gait Distance 100 Days to Meet Goals 5 Frequency of Treatment Frequency Of Treatment Twice a Day Treatment Plan Physical Therapy Treatment Plan Bed Mobility Training Transfer Training Gait Training Therapeutic Exercise Balance Retraining Post Op Education Discharge Planning Hot or Cold Pack Neuromuscular Re-ed Coordination Retraining Manual Therapy Recommendations To Nursing Amount of Assist Needed PT/OT Assist Only Mechanical Lift Discharge Recommendations PT Discharge Recommendations SNF Rehab
--- NOTE | 2018-03-05 14:50 | PC.NURSE ---
pt tried to get up with pt and was able to sit at side of bed. She became nauseous and back to bed. Bp wnl and pt is resting comfortably. Diaz remains in and she had 425cc of urine out.
--- NOTE | 2018-03-05 15:53 | OT.IP.EVAL ---
Current Diagnoses Scoliosis, unspecified (03/02/18) Spinal stenosis, lumbar region with neurogenic claudication (03/02/18) Surgery Performed Operation Date: 03/02/18 14:00 Actual Procedures p L1-2,L2-3,L3-4,L4-5 Anterior Instru. Fusion(XLIF)(Right) - Shon Roper MD Operation Date: 03/04/18 07:45 Actual Procedures p L1-2,L2-3,L3-4,L4-5,L5-S1 Posterior Instru. Fusion w/Bone Graft, L1-S1 Laminectomies - Shon Roper MD Past Medical History (Last Updated 02/16/18 @ 09:13 by Tammie Crandall RN) Arthritis (Acute) Edema (Acute) HTN (hypertension) (Acute) Kidney stones (Acute) Numbness (Acute) Pneumonia (Acute) Rosacea (Acute) Sciatica (Acute) Scoliosis (Acute) Surgical History (Last Updated 02/16/18 @ 09:13 by Tammie Crandall RN) History of colonoscopy (Acute) Hx of tonsillectomy (Acute) Occupational Therapy Inpatient Evaluation/Re-Eval M1 PT/OT-IP Prior Functional Status Start: 03/03/18 11:37 Freq: Status: Active Protocol: Document 03/05/18 15:21 [facility] (Rec: 03/05/18 15:52 [facility] [id number]) Medical Review Prior Functional Status Medical History Reviewed Yes Diet/Fluid Consistency Regular Communication Independent. Mobility and Gait Pt states mostly did not use a device, however if standing for long periods of time would use a SPC. Activities of Daily Living and IADL's Per pt independent with increased time. Prior Functional Level (Other details) The patient is a 72 year old female who has been in chronic pain for years with her low back Social History Household Members none Living Arrangements House Number of Floors (Floors) Two Floors Number of Stairs To Enter/Railing? 10 stairs, railing present Pt states plans to go home to friend's house where there are no steps to enter the house. Home Environment Walk in Shower- friend's house Home Equipment Raised Toilet Seat Without Armrests Additional Social History Comment Pt states friend Evangelina to be able to stay with her for one week at friend's house to assist. M2 OT-IP Current Condition Start: 03/03/18 13:30 Freq: Status: Active Protocol: Document 03/05/18 15:21 [facility] (Rec: 03/05/18 15:52 [facility] [id number]) Occupational Therapy Current Condition Current Condition Evaluation Date 03/05/18 Treatment Diagnosis Lumbar stenosis Diagnosis Onset Date 03/02/18 Post Operative Precautions Lumbar Precautions Log Roll No Twisting Limit Bending Lifting Restriction of 10 lbs Gait Belt above Incisional Area Other Precautions log roll Weight Bearing Status Weight Bearing Status Full Weight Bearing M3 OT- IP Subjective and Pain Start: 03/03/18 13:30 Freq: Status: Active Protocol: Document 03/05/18 15:21 [facility] (Rec: 03/05/18 15:52 [facility] [id number]) OT- Subjective Occupational Therapy Visit Type Type Initial Evaluation Visit Start Time 13:45 Visit Stop Time 14:25 Total Visit Minutes 40 Occupational Therapy Visit Comments Patient Comments Pt willing to get up at this time. Patient/Caregiver Goals Pt wants to go to friend's house when medically stable. OT Pain Assessment Pain When Pain Assessed At Rest Pain Present Pain Present Pain Reported Location Back Intensity 5 Scale Used Numeric (1 - 10) M4 OT- IP ADL's Start: 03/03/18 13:30 Freq: Status: Active Protocol: Document 03/05/18 15:21 [facility] (Rec: 03/05/18 15:52 [facility] [id number]) OT ADL-Dressing General Eval Upper Body Dressing Ability Maximum Assistance Lower Body Dressing Ability Total Assistance Areas Needing Assistance Socks Comments OT Dressing Comments Pt dependent for socks at this time. Pt states has tnt line supervisor at home. OT ADL-Toileting Comments OT Toileting Comments Pt has catheter. M6 OT- IP Functional Cognition Start: 03/03/18 13:30 Freq: Status: Active Protocol: Document 03/05/18 15:21 [facility] (Rec: 03/05/18 15:52 [facility] [id number]) Cognitive Factors Limiting Selfcare Function Cognitive Ability Level of Alertness Alert Patient Orientation Name Place Situation Attention Span Ability Capable of Focused Attention Capable of Sustained Attention Ability to Follow Commands Able to Follow One Step Commands Memory Description Short Term Impaired Safety Awareness Underestimates Need for Assistance Cognitive Comments Cognitive Assessment Comments Pt able to state wants and needs. Pt not able to recall back precautions and needing simple concrete commands to follow at this time. M7 OT- IP Mobility and Balance Start: 03/03/18 13:30 Freq: Status: Active Protocol: Document 03/05/18 15:21 [facility] (Rec: 03/05/18 15:52 [facility] [id number]) OT- Bed Mobility Assessment Rolling Type of Rolling Roll to Right Level of Assistance Maximum Assistance 2 Person Assistance Supine to Sit Supine to Sit Assist Maximum Assistance 2 Person Assistance Sit to Supine Sit to Supine Assist Maximum Assistance 2 Person Assistance Scooting Scooting to Edge of Bed Maximum Assistance 2 Person Assistance OT-Transfer Assessment Technique Transfer Destination Bed Devices Transfer Assistive Devices Mechanical Lift Comments Mobility Comments Pt only able to tolerate sitting at edge of bed due ot nausea BP supine 118/66 and sitting 107/61 O2 on 2L dropped from 96-91%. Nursing aware and present during end of the session. OT- Balance Assessment Sitting Balance and Reactions Static Sitting Balance Ability Fair Dynamic Sitting Balance Ability Poor Comments Other Balance Tests/Deviations/Treatment Pt needing CGA to DWIGHT for : sitting balance. M8 OT- IP Objective Assessments Start: 03/03/18 13:30 Freq: Status: Active Protocol: Document 03/05/18 15:21 [facility] (Rec: 03/05/18 15:52 [facility] [id number]) OT Gross Range of Motion Upper Extremity Range of Motion Assessment Within Functional Limits OT Strength Upper Extremity Strength Assessment Right Impaired Comments Strength Comments RUE 4/5, LUE 4+/5 OT- Coordination Assessment Comments Coordination Comments Pt having difficulty using right hand , states having trouble picking up items due to right hand swollen. OT Sensation Assessment Edema Edema Present Edema Comments Right hand swollen. M9 OT- IP Assessment and Plan Start: 03/03/18 13:30 Freq: Status: Active Protocol: Document 03/05/18 15:21 [facility] (Rec: 03/05/18 15:52 [facility] [id number]) OT Summary Assessment and Plan Potential Rehabilitation Potential Good Analytic Complexity at Evaluation Moderate Summary OT Impairments Pain Strength Balance Coordination Functional Cognition Functional Mobility Self-Feeding Grooming Dressing Toileting Bathing Toilet Transfers Shower Transfers Progress Towards Goals Slow Progress due to Pain Slow Progress due to Medical Issues Slow Progress due to Activity Tolerance Slow Progress due to Cognition Assessment Summary Pt MOD complexity and barriers are pain, decreased balance, strength, activity tolerance and now only able to tolerate sitting on the edge of the bed . Pt needing extensive two person assist for bed mobility . Due to pt needing two person assist for all needs, pt may need to go to skilled rehab pending if pt's friend able to provide enough assistance upon discharge. Goals Self-Feeding Goal Standby Assistance Grooming Goal Standby Assistance Dressing Goal Minimal Assistance Toileting Goal Minimal Assistance Bathing Goal Moderate Assistance Toilet Transfer Goal Minimal Assistance Shower Transfer Goal Moderate Assistance Patient/Caregiver Education Goal Demonstrate Post-Op Precautions Caregiver Independent Assisting Patient Days to Meet Goals 7 Frequency of Treatment Frequency Of Treatment Once a Day Treatment Plan OT Treatment Plan ADL Training Functional Cognition Training Functional Mobility Patient/Family Education Discharge Planning Other Treatment Recommendations and Next Transfer to [facility] [place] with AN WISE Treatment Focus x 2. Discharge Recommendations OT Discharge Recommendations SNF Rehab Home Equipment Needs shower chair
[2018-03-05] MEDS: hydrOXYzine pamoate 25 MG CAPSULE PO (16:38)
[2018-03-05] MEDS: HYDROCODONE/ACET 5/325 TABLET 2 TAB PO (16:38)
[2018-03-05] MEDS: GABAPENTIN 300 MG CAPSULE PO (21:18)
[2018-03-05] MEDS: SENNOSIDES 8.6 MG TABLET 17.2 MG PO (21:18)
[2018-03-05] MEDS: HYDROMORPHONE 1 MG INJ 0.2 MG IV (21:31)
[2018-03-06] VITALS (7 sets, daily range): BP systolic 114–138; BP diastolic 61–80; PULSE 73–89; RESP 16–22; TEMP 36.4–36.7; O2SAT 94–97
[2018-03-06] MEDS: HYDROCODONE/ACET 5/325 TABLET 2 TAB PO (04:53)
[2018-03-06] MEDS: ONDANSETRON 4 MG/2 ML INJ IV ×2 (04:57→19:29)
[2018-03-06] MEDS: hydroCHLOROthiazide 25 MG TABLET PO (08:53)
[2018-03-06] MEDS: DOCUSATE 100 MG CAPSULE PO ×2 (08:53→21:39)
[2018-03-06] MEDS: CELECOXIB 200 MG CAPSULE PO ×2 (08:53→21:39)
--- NOTE | 2018-03-06 09:25 | P.PN_ITS ---
Subjective Date Patient Seen: 03/06/18 Time Patient Seen: 09:18 Interval history: patient is postop day 4 status post 2 part lami/fusion surgeries by Dr. Roper. States this morning she is doing better than yesterday. Does get nausea with pain medication and is beginning and anti medic when she is given pain medication. Also notes that left leg sensation is getting better. Complaining of some pain in bilateral hips. Plan is to eventually go home when ready. receiving O2 oxygen 2 L through nasal cannula. Exam Vital Signs (past 8 hours): - 03/06/18 04:52 03/06/18 07:45 Temperature 97.5 F L 97.8 F Pulse Rate 77 80 Respiratory Rate 22 20 Blood Pressure 114/80 114/63 Pulse Oximetry 94 94 Fraction of Inspired Oxygen 21 Oxygen Delivery Method Nasal Cannula Oxygen Flow Rate 2 Narrative Exam Narrative: Patient in bed. Alert orient x3. Nasal cannula O2, 2 L at 92 % sat. Back dressing bloody. lateral dressing clean dry and intact.. Some numbness in left leg. Full sensation in right leg. 5/5 bilateral ankle strength. bilateral calf soft and nontender. Diaz in. Objective Labs Result Diagrams: 03/05/18 06:43 03/05/18 06:43 Assessment & Plan Post-op Postoperative Procedures Operation Date: 03/02/18 14:00 Actual Procedures Side Surgeon p L1-2,L2-3,L3-4,L4-5 Anterior Instru. Fusion(XLIF) Right Shon Roper MD Operation Date: 03/04/18 07:45 Actual Procedures Side Surgeon p L1-2,L2-3,L3-4,L4-5,L5-S1 Posterior Instru. Fusion w/Bone Graft, L1-S1 Laminectomies Shon Roper MD Postop day 4. back dressing will be changed. mobilize with physical therapy. YOLIE Diaz when more mobile. Continue pain medicine as needed and anti nausea medicine. plan is to discharged home when medically stable..
--- NOTE | 2018-03-06 09:26 | PC.NURSE ---
Pt arousable, offers no overt c/o. Repositioned to comfort. Ortho PA into see Pt and discuss plan. Will redress back dressing shortly.
--- NOTE | 2018-03-06 10:09 | PC.NURSE ---
Pt continues in bed awaiting PT/OT. restful at present.
[2018-03-06] MEDS: HYDROCODONE/ACET 5/325 TABLET 1 TAB PO (10:57)
--- NOTE | 2018-03-06 11:30 | PT.IPTN ---
Current Diagnoses Scoliosis, unspecified (03/02/18) Spinal stenosis, lumbar region with neurogenic claudication (03/02/18) Surgery Performed Operation Date: 03/02/18 14:00 Actual Procedures p L1-2,L2-3,L3-4,L4-5 Anterior Instru. Fusion(XLIF)(Right) - Shon Roper MD Operation Date: 03/04/18 07:45 Actual Procedures p L1-2,L2-3,L3-4,L4-5,L5-S1 Posterior Instru. Fusion w/Bone Graft, L1-S1 Laminectomies - Shon Roper MD Physical Therapy Treatment Note M2 PT-IP Current Condition Start: 03/03/18 11:37 Freq: Status: Active Protocol: Document 03/05/18 14:00 [facility] (Rec: 03/05/18 17:28 AB [id number]) Physical Therapy Current Condition Current Condition Evaluation Date 03/03/18 Treatment Diagnosis s/p L1-L5 anterior/posterior fusion, difficulty in walking Onset Date 03/02/18 Precautions Lumbar Precautions Log Roll No Twisting Limit Bending Lifting Restriction of 10 lbs Gait Belt above Incisional Area M3 PT-IP Subjective Start: 03/03/18 11:37 Freq: Status: Active Protocol: Document 03/06/18 11:30 [facility] (Rec: 03/06/18 13:04 AB [email or web address]) Subjective Physical Therapy Visit Type Type Treatment Note Visit Start Time 11:30 Visit Stop Time 12:04 Total Visit Minutes 34 Number of PAYROLL SERVICES ANALYST Visits 0 Physical Therapy Visit Comments Patient Comments pt agreeable to do PT Therapy Pain Assessment Pain When Pain Assessed At Rest Pain Present Pain Present Pain Reported Location Right Hip Intensity 4 Scale Used increase with mobility but pain scale not stated Pain Management Techniques Timing of Activity with Medications M4 PT-IP Mobility and Gait Start: 03/03/18 11:37 Freq: Status: Active Protocol: Document 03/06/18 11:30 [facility] (Rec: 03/06/18 13:04 AB [id number]) PT-Bed Mobility Assessment Rolling Type of Rolling Log Rolling Level of Assist Moderate Assistance 2 Person Assistance Supine to Sit Supine to Sit Maximum Assistance 2 Person Assistance Scooting Scooting to Edge of Bed Maximum Assistance PT-Transfer Assessment Sit to and From Stand Sit to and from Stand Maximum Assistance 2 Person Assistance Use of Upper Extremities Equipment Transfer Assistive Device Gait Belt Front Wheeled Walker Orthotic/Prosthetic Devices or Brace: No Transfers Transfer Destination Chair Transfer Technique Stand Step Pivot Transfer Ability Level of Assist Maximum Assistance 2 Person Assistance Use of Upper Extremities Comments Mobility Comments BP prior to mobilizin/64 TX 82. pt completed supine to sit max A x 2 and max cues. pt with c/o increase R hip pain and c/o nausea. BP sitting on EOB: 111/55. asked pt if she wants to lay back in bed and refused. stated that she really wants to sit on the chair. pt continues to c/o nausea. BP checked prior to standin/55. pt required max A x 2 and max cues with sit to stand and completed step transfer using FWW to chair max A x 2 and max cues. presents with (+) R knee buckling requiring stabilization. positioned pt on chair. BP: 101/54. nurse aware of BP and pt's symptoms. BP checked again afte ~ 5 min of rest: 122/65. Left pt sitting on chair with call light and table within reach. M5 PT-IP Objective Assessments Start: 03/03/18 11:37 Freq: Status: Active Protocol: Document 03/05/18 14:00 [facility] (Rec: 03/05/18 17:28 AB [id number]) Orientation Orientation/Cognition Level of Alertness Alert Orientation Name Age Birthday Month Date Year Day of Week Place Situation Safety Awareness Decreased Safety Awareness Gross Range of Motion Lower Extremity ROM Assessment Within Functional Limits Strength Lower Extremity Strength Assessment Bilaterally Impaired Comments Strength Comments BLE weakness R>L LLE: 4-/5 RLE 3+/5 Sensation Assessment Sensation Gross Sensation WNL M6 PT-IP Treatment Start: 03/03/18 11:37 Freq: Status: Active Protocol: Document 03/06/18 11:30 AB (Rec: 03/06/18 13:04 AB [email or web address]) Physical Therapy Treatment Education Education Provided Safety M7 PT-IP Assessment and Plan Start: 03/03/18 11:37 Freq: Status: Active Protocol: Document 03/06/18 11:30 AB (Rec: 03/06/18 13:04 AB [id number]) PT Summary Assessment and Plan Potential Rehabilitation Potential Fair Summary Impairments Pain ROM Strength Balance Coordination Sensation Tone Cognition Bed Mobility Transfers Gait Activity Tolerance Progress Towards Goals Slow Progress due to Pain Slow Progress due to Medical Issues Slow Progress due to Activity Tolerance Assessment Summary pt unable to tolerate much activity this tx session and continues to require 2 person max A with mobility. presents with (+) R knee buckling requiring max A to stabilize knee. pt will require SNF rehab. Goals Bed Mobility Goal Standby Assistance Transfer Goal Standby Assistance Front Wheeled Walker Gait Goal Standby Assistance Front Wheel Walker Gait Distance 100 Days to Meet Goals 5 Frequency of Treatment Frequency Of Treatment Twice a Day Treatment Plan Physical Therapy Treatment Plan Bed Mobility Training Transfer Training Gait Training Therapeutic Exercise Balance Retraining Post Op Education Discharge Planning Hot or Cold Pack Neuromuscular Re-ed Coordination Retraining Manual Therapy Recommendations To Nursing Amount of Assist Needed PT/OT Assist Only Mechanical Lift Discharge Recommendations PT Discharge Recommendations SNF Rehab
--- NOTE | 2018-03-06 12:22 | PC.NURSE ---
Addendum entered by Sridhar Pierson R.N. 03/06/18 14:50: Pt back to bed pivot with by PT/OT dressing change completed while sitting up. esteban intact with little drainage. slight drain site drainage. Original Note: Pt up in chair with assistance from PT/OT. B/p decreased during transfer and Pt continued to transfer to the [facility] where she is now feeling better. B/p's 110's / 50's. Tolerating sitting in the chair much better now. Dressing change unable to be done at the present time as Pt is positioned in the chair.
--- NOTE | 2018-03-06 12:39 | OT.IP.TRT ---
Current Diagnoses Scoliosis, unspecified (03/02/18) Spinal stenosis, lumbar region with neurogenic claudication (03/02/18) Surgery Performed Operation Date: 03/02/18 14:00 Actual Procedures p L1-2,L2-3,L3-4,L4-5 Anterior Instru. Fusion(XLIF)(Right) - Shon Roper MD Operation Date: 03/04/18 07:45 Actual Procedures p L1-2,L2-3,L3-4,L4-5,L5-S1 Posterior Instru. Fusion w/Bone Graft, L1-S1 Laminectomies - Shon Roper MD Occupational Therapy Treatment Note M2 OT-IP Current Condition Start: 03/03/18 13:30 Freq: Status: Active Protocol: Document 03/05/18 15:21 [facility] (Rec: 03/05/18 15:52 [facility] [id number]) Occupational Therapy Current Condition Current Condition Evaluation Date 03/05/18 Treatment Diagnosis Lumbar stenosis Diagnosis Onset Date 03/02/18 Post Operative Precautions Lumbar Precautions Log Roll No Twisting Limit Bending Lifting Restriction of 10 lbs Gait Belt above Incisional Area Other Precautions log roll Weight Bearing Status Weight Bearing Status Full Weight Bearing M3 OT- IP Subjective and Pain Start: 03/03/18 13:30 Freq: Status: Active Protocol: Document 03/06/18 12:29 [facility] (Rec: 03/06/18 12:38 [facility] [id number]) OT- Subjective Occupational Therapy Visit Type Type Treatment Note Visit Start Time 11:35 Visit Stop Time 12:05 Total Visit Minutes 30 Occupational Therapy Visit Comments Patient Comments Pt willing to get up. Patient/Caregiver Goals Pt open to back up plan of skilled rehab as last resort. OT Pain Assessment Pain When Pain Assessed At Rest Pain Present Pain Present Pain Reported M4 OT- IP ADL's Start: 03/03/18 13:30 Freq: Status: Active Protocol: Document 03/05/18 15:21 [facility] (Rec: 03/05/18 15:52 [facility] [id number]) OT ADL-Dressing General Eval Upper Body Dressing Ability Maximum Assistance Lower Body Dressing Ability Total Assistance Areas Needing Assistance Socks Comments OT Dressing Comments Pt dependent for socks at this time. Pt states has hand stonecutter at home. OT ADL-Toileting Comments OT Toileting Comments Pt has catheter. M6 OT- IP Functional Cognition Start: 03/03/18 13:30 Freq: Status: Active Protocol: Document 03/06/18 12:29 [facility] (Rec: 03/06/18 12:38 [facility] [id number]) Cognitive Factors Limiting Selfcare Function Cognitive Ability Level of Alertness Alert Patient Orientation Name Place Situation Attention Span Ability Capable of Focused Attention Capable of Sustained Attention Ability to Follow Commands Able to Follow One Step Commands Safety Awareness Underestimates Need for Assistance Cognitive Comments Cognitive Assessment Comments Pt able to follow commands however very distracted due to pain and dizziness. M7 OT- IP Mobility and Balance Start: 03/03/18 13:30 Freq: Status: Active Protocol: Document 03/06/18 12:29 [facility] (Rec: 03/06/18 12:38 [facility] [id number]) OT- Bed Mobility Assessment Rolling Type of Rolling Roll to Left Level of Assistance Moderate Assistance 2 Person Assistance Supine to Sit Supine to Sit Assist Maximum Assistance 2 Person Assistance OT-Transfer Assessment Sit to and From Stand Sit to and from Stand Maximum Assistance 2 Person Assistance Transfers Transfer Ability Maximum Assistance 2 Person Assistance Technique Transfer Destination Chair Transfer Technique Stand Step Pivot Devices Transfer Assistive Devices Gait Belt Front Wheeled Walker Comments Mobility Comments Pt buckling at right knee greater than left and needing MAX A x 2 to transfer, guide hips and get recliner closer to her to sit. OT- Balance Assessment Sitting Balance and Reactions Static Sitting Balance Ability Good Dynamic Sitting Balance Ability Fair Standing Balance and Reactions Static Standing Balance Ability Poor Dynamic Standing Balance Ability Poor M8 OT- IP Objective Assessments Start: 03/03/18 13:30 Freq: Status: Active Protocol: Document 03/05/18 15:21 [facility] (Rec: 03/05/18 15:52 [facility] [id number]) OT Gross Range of Motion Upper Extremity Range of Motion Assessment Within Functional Limits OT Strength Upper Extremity Strength Assessment Right Impaired Comments Strength Comments RUE 4/5, LUE 4+/5 OT- Coordination Assessment Comments Coordination Comments Pt able to use right hand better today, however right hand still swollen. OT Sensation Assessment Edema Edema Present Edema Comments Right hand swollen. M9 OT- IP Assessment and Plan Start: 03/03/18 13:30 Freq: Status: Active Protocol: Document 03/06/18 12:29 [facility] (Rec: 03/06/18 12:38 [facility] [id number]) OT Summary Assessment and Plan Potential Rehabilitation Potential Good Analytic Complexity at Evaluation Moderate Summary OT Impairments Pain Strength Balance Functional Cognition Functional Mobility Grooming Dressing Toileting Bathing Toilet Transfers Shower Transfers Progress Towards Goals Slow Progress due to Pain Slow Progress due to Medical Issues Slow Progress due to Activity Tolerance Assessment Summary Pt MOD complexity still needing extensive assist for bed mobility and transfers, buckling at right knee at this time. Pt would benefit from skilled rehab prior to going home. Goals Days to Meet Goals 10 Frequency of Treatment Frequency Of Treatment Once a Day Treatment Plan OT Treatment Plan ADL Training Functional Cognition Training Functional Mobility Patient/Family Education Discharge Planning Other Treatment Recommendations and Next Transfer to [facility] with FWW MODA Treatment Focus x 2. Discharge Recommendations OT Discharge Recommendations SNF Rehab Home Equipment Needs shower chair
--- NOTE | 2018-03-06 14:09 | CM.DPC ---
DCP Cont: After consulting with physical and occupational therapy, as well as patient, has been recommended for skilled rehab. Lina at [facility] is pillowcase turner. Faxed her over notes, clinicals and therapy notes, along with surgical notes. Spoke to patient with choice list, and originally wanted to go to [facility]. Spoke to [facility], no current beds until Thursday. After speaking to Lina at [facility], was determined that this facility is not contracted with patient's current plan. Lina went over contracted list, which included [facility], both [facility], [facility]. Patient elected to go to [facility], for this is where patient resides. Called [facility]. Was given admission contact lens blocker and cutter named [facility]. Message phone gave phone number for their admissions number of: [phone]. Left a message on their voice mail. Lina at [facility] stated that they would have to review notes, for this was a planned therapy. Stated that they will review and contact us on status. P: DCP to continue to follow. Follow up with [facility] in [place] regarding availability with Jolynn, and follow up with Lina at [facility]. Tara Ariza RN/Director Of Women'S Services
--- NOTE | 2018-03-06 14:25 | PT.IPTN ---
Current Diagnoses Scoliosis, unspecified (03/02/18) Spinal stenosis, lumbar region with neurogenic claudication (03/02/18) Surgery Performed Operation Date: 03/02/18 14:00 Actual Procedures p L1-2,L2-3,L3-4,L4-5 Anterior Instru. Fusion(XLIF)(Right) - Shon Roper MD Operation Date: 03/04/18 07:45 Actual Procedures p L1-2,L2-3,L3-4,L4-5,L5-S1 Posterior Instru. Fusion w/Bone Graft, L1-S1 Laminectomies - Shon Roper MD Physical Therapy Treatment Note M2 PT-IP Current Condition Start: 03/03/18 11:37 Freq: Status: Active Protocol: Document 03/05/18 14:00 AB (Rec: 03/05/18 17:28 AB [id number]) Physical Therapy Current Condition Current Condition Evaluation Date 03/03/18 Treatment Diagnosis s/p L1-L5 anterior/posterior fusion, difficulty in walking Onset Date 03/02/18 Precautions Lumbar Precautions Log Roll No Twisting Limit Bending Lifting Restriction of 10 lbs Gait Belt above Incisional Area M3 PT-IP Subjective Start: 03/03/18 11:37 Freq: Status: Active Protocol: Document 03/06/18 14:25 GGD (Rec: 03/06/18 15:04 GGD [id number]) Subjective Physical Therapy Visit Type Type Treatment Note Visit Start Time 14:00 Visit Stop Time 14:25 Total Visit Minutes 25 Number of LARRY CAR OPERATOR Visits 1 Physical Therapy Visit Comments Patient Comments Pt would like to get back to bed. Therapy Pain Assessment Pain When Pain Assessed At Rest Pain Present Pain Present Pain Reported Location Back Intensity 4 Scale Used Numeric (1 - 10) Pain Management Techniques Re-positioning M4 PT-IP Mobility and Gait Start: 03/03/18 11:37 Freq: Status: Active Protocol: Document 03/06/18 14:25 GGD (Rec: 03/06/18 15:04 GGD [id number]) PT-Bed Mobility Assessment Rolling Type of Rolling Log Rolling Level of Assist Moderate Assistance 2 Person Assistance Sit to Supine Sit to Supine Maximum Assistance 2 Person Assistance Bedrails PT-Transfer Assessment Sit to and From Stand Sit to and from Stand Moderate Assistance 2 Person Assistance Use of Upper Extremities Equipment Transfer Assistive Device Gait Belt Front Wheeled Walker Orthotic/Prosthetic Devices or Brace: No Transfers Transfer Destination Bed Transfer Technique Stand Step Pivot Transfer Ability Level of Assist Moderate Assistance 2 Person Assistance Use of Upper Extremities M5 PT-IP Objective Assessments Start: 03/03/18 11:37 Freq: Status: Active Protocol: Document 03/05/18 14:00 AB (Rec: 03/05/18 17:28 AB [id number]) Orientation Orientation/Cognition Level of Alertness Alert Orientation Name Age Birthday Month Date Year Day of Week Place Situation Safety Awareness Decreased Safety Awareness Gross Range of Motion Lower Extremity ROM Assessment Within Functional Limits Strength Lower Extremity Strength Assessment Bilaterally Impaired Comments Strength Comments BLE weakness R>L LLE: 4-/5 RLE 3+/5 Sensation Assessment Sensation Gross Sensation WNL M6 PT-IP Treatment Start: 03/03/18 11:37 Freq: Status: Active Protocol: Document 03/06/18 14:25 GGD (Rec: 03/06/18 15:04 GGD [id number]) Physical Therapy Treatment Education Education Provided Precautions M7 PT-IP Assessment and Plan Start: 03/03/18 11:37 Freq: Status: Active Protocol: Document 03/06/18 14:25 GGD (Rec: 03/06/18 15:04 GGD [id number]) PT Summary Assessment and Plan Summary Assessment Summary Pt transfer to left, due to right knee buckling. Her BP and O2 was stable with treatment. She had low tolerance to activity. She would benifit from SNF rehab. Frequency of Treatment Frequency Of Treatment Twice a Day Recommendations To Nursing Amount of Assist Needed PT/OT Assist Only Mechanical Lift Discharge Recommendations PT Discharge Recommendations SNF Rehab
--- NOTE | 2018-03-06 14:31 | OT.IP.TRT ---
Current Diagnoses Scoliosis, unspecified (03/02/18) Spinal stenosis, lumbar region with neurogenic claudication (03/02/18) Surgery Performed Operation Date: 03/02/18 14:00 Actual Procedures p L1-2,L2-3,L3-4,L4-5 Anterior Instru. Fusion(XLIF)(Right) - Shon Roper MD Operation Date: 03/04/18 07:45 Actual Procedures p L1-2,L2-3,L3-4,L4-5,L5-S1 Posterior Instru. Fusion w/Bone Graft, L1-S1 Laminectomies - Shon Roper MD Occupational Therapy Treatment Note M2 OT-IP Current Condition Start: 03/03/18 13:30 Freq: Status: Active Protocol: Document 03/05/18 15:21 [facility] (Rec: 03/05/18 15:52 [facility] [id number]) Occupational Therapy Current Condition Current Condition Evaluation Date 03/05/18 Treatment Diagnosis Lumbar stenosis Diagnosis Onset Date 03/02/18 Post Operative Precautions Lumbar Precautions Log Roll No Twisting Limit Bending Lifting Restriction of 10 lbs Gait Belt above Incisional Area Other Precautions log roll Weight Bearing Status Weight Bearing Status Full Weight Bearing M3 OT- IP Subjective and Pain Start: 03/03/18 13:30 Freq: Status: Active Protocol: Document 03/06/18 14:27 [facility] (Rec: 03/06/18 14:31 [facility] [id number]) OT- Subjective Occupational Therapy Visit Type Type Treatment Note Visit Start Time 14:10 Visit Stop Time 14:25 Total Visit Minutes 15 Occupational Therapy Visit Comments Patient Comments Pt wanting to get back to bed. OT Pain Assessment Pain When Pain Assessed At Rest Pain Present Pain Present Pain Reported Location Right Hip Intensity 4 Scale Used Numeric (1 - 10) M4 OT- IP ADL's Start: 03/03/18 13:30 Freq: Status: Active Protocol: Document 03/05/18 15:21 [facility] (Rec: 03/05/18 15:52 [facility] [id number]) OT ADL-Dressing General Eval Upper Body Dressing Ability Maximum Assistance Lower Body Dressing Ability Total Assistance Areas Needing Assistance Socks Comments OT Dressing Comments Pt dependent for socks at this time. Pt states has pull through hooker at home. OT ADL-Toileting Comments OT Toileting Comments Pt has catheter. M6 OT- IP Functional Cognition Start: 03/03/18 13:30 Freq: Status: Active Protocol: Document 03/06/18 12:29 [facility] (Rec: 03/06/18 12:38 [facility] [id number]) Cognitive Factors Limiting Selfcare Function Cognitive Ability Level of Alertness Alert Patient Orientation Name Place Situation Attention Span Ability Capable of Focused Attention Capable of Sustained Attention Ability to Follow Commands Able to Follow One Step Commands Safety Awareness Underestimates Need for Assistance Cognitive Comments Cognitive Assessment Comments Pt able to follow comands however very distracted due to pain and dizziness. M7 OT- IP Mobility and Balance Start: 03/03/18 13:30 Freq: Status: Active Protocol: Document 03/06/18 14:27 [facility] (Rec: 03/06/18 14:31 [facility] [id number]) OT- Bed Mobility Assessment Sit to Supine Sit to Supine Assist Maximum Assistance 2 Person Assistance OT-Transfer Assessment Sit to and From Stand Sit to and from Stand Maximum Assistance 2 Person Assistance Transfers Transfer Ability Maximum Assistance 2 Person Assistance Technique Transfer Destination Bed Transfer Technique Stand Step Pivot Devices Transfer Assistive Devices Gait Belt Front Wheeled Walker Comments Mobility Comments Saw pt second time in PM to reassess mobility to see if improvement if nursing able to assist pt . At this time still MAXA x2 and OT/PT transfers at this time. Pt's right knee still buckle and had to transfer to the left. BP stable and did not drop. Pt still on 2L of O2. M8 OT- IP Objective Assessments Start: 03/03/18 13:30 Freq: Status: Active Protocol: Document 03/05/18 15:21 [facility] (Rec: 03/05/18 15:52 [facility] [id number]) OT Gross Range of Motion Upper Extremity Range of Motion Assessment Within Functional Limits OT Strength Upper Extremity Strength Assessment Right Impaired Comments Strength Comments RUE 4/5, LUE 4+/5 OT- Coordination Assessment Comments Coordination Comments Pt having difficulty using right hand , states having trouble picking up items due to right hand swollen. OT Sensation Assessment Edema Edema Present Edema Comments Right hand swollen. M9 OT- IP Assessment and Plan Start: 03/03/18 13:30 Freq: Status: Active Protocol: Document 03/06/18 14:27 [facility] (Rec: 03/06/18 14:31 [facility] [id number]) OT Summary Assessment and Plan Frequency of Treatment Frequency Of Treatment Twice a Day Treatment Plan Other Treatment Recommendations and Next Pt see twice due to reassess Treatment Focus for transfers and see if nursing cleared to transfer pt at this time Discharge Recommendations OT Discharge Recommendations SNF Rehab
[2018-03-06] MEDS: hydrOXYzine pamoate 25 MG CAPSULE PO (16:45)
[2018-03-06] MEDS: HYDROMORPHONE 1 MG INJ 0.5 MG IV ×2 (19:29→22:00)
[2018-03-06] MEDS: SENNOSIDES 8.6 MG TABLET 17.2 MG PO (21:39)
[2018-03-06] MEDS: GABAPENTIN 300 MG CAPSULE PO (21:39)
[2018-03-07] VITALS (10 sets, daily range): BP systolic 123–142; BP diastolic 55–74; PULSE 75–85; RESP 18–20; TEMP 36.4–36.6; O2SAT 88–99
[2018-03-07] MEDS: HYDROMORPHONE 1 MG INJ 0.5 MG IV ×2 (01:38→05:10)
[2018-03-07] MEDS: ONDANSETRON 4 MG/2 ML INJ IV (01:39)
[2018-03-07] MEDS: METOCLOPRAMIDE 10 MG/2 ML INJ IV (05:13)
--- NOTE | 2018-03-07 06:55 | PC.NURSE ---
NOC Shift: Pt POD 3,5 AAOx3 w/continued pain issues, unable to increase mobility much. Tolerating IV Dilaudid for pain when given w/emesis medication. VSS. Diaz.
--- NOTE | 2018-03-07 07:06 | P.PN_ITS ---
Subjective Date Patient Seen: 03/07/18 Time Patient Seen: 07:03 Interval history: It has been rough for her. Significant issues with pain control. She seems to be doing better with the IV Dilaudid. however, the main issue is concerns with nausea and she does not seem to want to take the pain medication for fear of nausea more than anything else. Because this her pain control is limited and it has been very hard to mobilize her. She did get out of bed yesterday but it was rough. Pain is across the back and wrapping around to the pelvis. No leg pain, but she did feel like her right leg was going to buckle some yesterday when standing. Exam Vital Signs (past 8 hours): - 03/07/18 00:39 03/07/18 05:03 Temperature 97.6 F 97.8 F Pulse Rate 84 75 Respiratory Rate 20 18 Blood Pressure 136/67 138/67 Pulse Oximetry 95 95 Fraction of Inspired Oxygen 21 Oxygen Delivery Method Nasal Cannula Oxygen Flow Rate 2 Const Orientation: alert and oriented x3 Back/Spine/Pelvis Other: Dressing CDI. 5/5 motor both lower extremities Objective Labs Result Diagrams: 03/05/18 06:43 03/05/18 06:43 Assessment & Plan Post-op Postoperative Procedures Operation Date: 03/02/18 14:00 Actual Procedures Side Surgeon p L1-2,L2-3,L3-4,L4-5 Anterior Instru. Fusion(XLIF) Right Shon Roper MD Operation Date: 03/04/18 07:45 Actual Procedures Side Surgeon p L1-2,L2-3,L3-4,L4-5,L5-S1 Posterior Instru. Fusion w/Bone Graft, L1-S1 Laminectomies Shon Roper MD she is mobilizing very slowly. Her pain levels are within the normal expected at this point, but because she will take pain medication, it is much harder for her to move. I again explained to her that she needs to mobilize. DC the Diaz today. DC the IV pain medication and switched to oral Dilaudid for better long-lasting relief. Most likely will require senior living.
--- NOTE | 2018-03-07 08:09 | PC.NURSE ---
Addendum entered by Sridhar Pierson R.N. 03/07/18 13:21: Pt continues to progress, voiding well,tolerating activity better as the day progresses. Does get a bit SOBOE and still has O2via NC. Voice is stronger, no soboe with talking. Engaging with visitors. Continues up in chair. Original Note: Addendum entered by Sridhar Pierson R.N. 03/07/18 10:47: Pt's khan d/c'd A.m. care complete. Pt requesting to get up. @ person gait belt and FWW. Pt tolerated activity well walked to chair and then up to BR. See PT note. Pt continues up in chair. Original Note: Dr. Roper in to see Pt. Discussed plan for the day and need for [facility] after d/c. Pt alert but not appearing overly thrilled to see another day dealing with surgery. Pt has stated on several occasions that she never would have had the surgery had she known what it would be like post op. RN discussed plan for the day. Pt restful at present.
[2018-03-07] MEDS: DOCUSATE 100 MG CAPSULE PO ×2 (10:02→20:59)
[2018-03-07] MEDS: hydroCHLOROthiazide 25 MG TABLET PO (10:02)
[2018-03-07] MEDS: CELECOXIB 200 MG CAPSULE PO ×2 (10:02→20:58)
--- NOTE | 2018-03-07 10:44 | PT.IPTN ---
Current Diagnoses Scoliosis, unspecified (03/02/18) Spinal stenosis, lumbar region with neurogenic claudication (03/02/18) Surgery Performed Operation Date: 03/02/18 14:00 Actual Procedures p L1-2,L2-3,L3-4,L4-5 Anterior Instru. Fusion(XLIF)(Right) - Shon Roper MD Operation Date: 03/04/18 07:45 Actual Procedures p L1-2,L2-3,L3-4,L4-5,L5-S1 Posterior Instru. Fusion w/Bone Graft, L1-S1 Laminectomies - Shon Roper MD Physical Therapy Treatment Note M2 PT-IP Current Condition Start: 03/03/18 11:37 Freq: Status: Active Protocol: Document 03/05/18 14:00 AB (Rec: 03/05/18 17:28 AB [id number]) Physical Therapy Current Condition Current Condition Evaluation Date 03/03/18 Treatment Diagnosis s/p L1-L5 anterior/posterior fusion, difficulty in walking Onset Date 03/02/18 Precautions Lumbar Precautions Log Roll No Twisting Limit Bending Lifting Restriction of 10 lbs Gait Belt above Incisional Area M3 PT-IP Subjective Start: 03/03/18 11:37 Freq: Status: Active Protocol: Document 03/07/18 10:10 [facility]B (Rec: 03/07/18 10:44 CLB [id number]) Subjective Physical Therapy Visit Type Type Treatment Note Visit Start Time 10:10 Visit Stop Time 10:24 Total Visit Minutes 14 Number of LINE MECHANIC Visits 2 Physical Therapy Visit Comments Patient Comments Needs to us BR and would like to put on a brief. Therapy Pain Assessment Pain When Pain Assessed At Rest Pain Present Pain Present Pain Reported Location Back Intensity 4 Scale Used Numeric (1 - 10) M4 PT-IP Mobility and Gait Start: 03/03/18 11:37 Freq: Status: Active Protocol: Document 03/07/18 10:10 [facility] (Rec: 03/07/18 10:44 [facility]B [id number]) PT-Transfer Assessment Sit to and From Stand Sit to and from Stand Minimal Assistance 1 Person Assistance Use of Upper Extremities Equipment Transfer Assistive Device Gait Belt Front Wheeled Walker Orthotic/Prosthetic Devices or Brace: No Transfers Transfer Destination Chair Toilet Transfer Technique Stand Step Pivot Transfer Ability Level of Assist Minimal Assistance 1 Person Assistance Use of Upper Extremities Comments Mobility Comments Pt standing with nursing upon arrival then sat in chair w/RN assist. Gait Assessment Gait Gait Assistance Required: Contact Guard Assist 1 Person Assist Distance (Feet) 15 Assistive Devices Assistive Device Gait Belt Front Wheeled Walker Orthotic/Prosthetic Devices or Brace: No Gait Deviations General Gait Pattern Decreased Stride Length Decreased Feet Clearance Flexed Trunk Narrow Based Gait Step-to Gait Factors Limiting Gait Function Factors Limiting Gait Function Decreased Activity Tolerance Decreased Strength Pain Comments Gait Comments Pt able to ambulate into BR CGA. M5 PT-IP Objective Assessments Start: 03/03/18 11:37 Freq: Status: Active Protocol: Document 03/05/18 14:00 AB (Rec: 03/05/18 17:28 AB [id number]) Orientation Orientation/Cognition Level of Alertness Alert Orientation Name Age Birthday Month Date Year Day of Week Place Situation Safety Awareness Decreased Safety Awareness Gross Range of Motion Lower Extremity ROM Assessment Within Functional Limits Strength Lower Extremity Strength Assessment Bilaterally Impaired Comments Strength Comments BLE weakness R>L LLE: 4-/5 RLE 3+/5 Sensation Assessment Sensation Gross Sensation WNL M6 PT-IP Treatment Start: 03/03/18 11:37 Freq: Status: Active Protocol: Document 03/06/18 14:25 GGD (Rec: 03/06/18 15:04 GGD [id number]) Physical Therapy Treatment Education Education Provided Precautions M7 PT-IP Assessment and Plan Start: 03/03/18 11:37 Freq: Status: Active Protocol: Document 03/07/18 10:10 [facility] (Rec: 03/07/18 10:44 CLB [id number]) PT Summary Assessment and Plan Summary Impairments Pain ROM Strength Balance Coordination Sensation Tone Cognition Bed Mobility Transfers Gait Activity Tolerance Progress Towards Goals Slow Progress due to Pain Slow Progress due to Medical Issues Slow Progress due to Activity Tolerance Assessment Summary Pt up with nursing upon arrival. Pt is Min A for sit to stand from chair and toilet . Pt required assist donning/ doffing brief. Pt had no c/o right knee buckling this session and was able to ambulate 7ft to BR then 7ft back to chair. Pt left in chair with legs elevated ENROLLMENT CLERK present in room upon departure . Goals Bed Mobility Goal Standby Assistance Transfer Goal Standby Assistance Front Wheeled Walker Gait Goal Standby Assistance Front Wheel Walker Gait Distance 100 Days to Meet Goals 5 Frequency of Treatment Frequency Of Treatment Twice a Day Treatment Plan Physical Therapy Treatment Plan Bed Mobility Training Transfer Training Gait Training Therapeutic Exercise Balance Retraining Post Op Education Discharge Planning Hot or Cold Pack Neuromuscular Re-ed Coordination Retraining Manual Therapy Recommendations To Nursing Amount of Assist Needed 2 Person Assist Discharge Recommendations PT Discharge Recommendations SNF Rehab
--- NOTE | 2018-03-07 11:25 | CM.DPC ---
Addendum entered by Tara Ariza R.N. 03/07/18 11:30: Left message with Lina Dc, embedded case manager at [facility] with patient's status today. Original Note: DCP Cont: Was able to contact Jolynn at [facility] in admissions. Her phone number is: [phone]. Stated that they may have bed open later in the week, but encouraged to go ahead and fax clinicals to her to review. Faxed face sheet, clinical notes and therapy notes to Jolynn at [phone]. She will review notes. Will also update [facility] on status. P: DCP to continue to follow. Plan is for patient to go to senior care for rehab. Tara Ariza RN/Electron Microscopist
--- NOTE | 2018-03-07 11:35 | CM.DPC ---
DCP Cont: Was able to speak to Camron at [facility]. Stated that they should be able to see patient tomorrow. Let him know that clinical notes were already faxed. Reminded Camron that primary contact is Daphnie, and gave him phone number. Let him know that her number is already on the bottom of the face sheet. P: Patient discharging home today. [facility] will see patient tomorrow. Tara Ariza RN/Alining Inspector
--- NOTE | 2018-03-07 12:49 | CM.DPNOTE ---
Addendum entered by Tara Ariza R.N. 03/07/18 14:23: Left another message with Lina at [facility], asking to review, for patient could potentially be discharged tomorrow. At this time, may be [facility]. Let her know this on message. Original Note: DCP : Met with patient and friend. Friend was originally going to help patient at home upon discharge, but has her own back problems. Discussed plan. Patient has given permission to give her friend, Evangelina information. Evangelina gave her contact number of: [phone]. Mentioned plan of [facility], but they may not be able to accept her until later in the week, and they normally do not transport. Confirmed this with Jolynn in admissions. Patient would be willing to go to [facility] also. Contacted Rachael at [facility]. Faxed over clinicals. Stated that they may be able to accept her Thursday or . This is also dependent upon [facility] authorization. P: DCP to follow closely, [facility] may be better option for patient, and she is willing to go there. Is also contracted with [facility]. Continue to follow up with Lina, investment manager, and [facility] regarding discharge. Tara Ariza RN/Bottling Room Worker
--- NOTE | 2018-03-07 13:44 | PT.IPTN ---
Current Diagnoses Scoliosis, unspecified (03/02/18) Spinal stenosis, lumbar region with neurogenic claudication (03/02/18) Surgery Performed Operation Date: 03/02/18 14:00 Actual Procedures p L1-2,L2-3,L3-4,L4-5 Anterior Instru. Fusion(XLIF)(Right) - Shon Roper MD Operation Date: 03/04/18 07:45 Actual Procedures p L1-2,L2-3,L3-4,L4-5,L5-S1 Posterior Instru. Fusion w/Bone Graft, L1-S1 Laminectomies - Shon Roper MD Physical Therapy Treatment Note M2 PT-IP Current Condition Start: 03/03/18 11:37 Freq: Status: Active Protocol: Document 03/05/18 14:00 AB (Rec: 03/05/18 17:28 AB [id number]) Physical Therapy Current Condition Current Condition Evaluation Date 03/03/18 Treatment Diagnosis s/p L1-L5 anterior/posterior fusion, difficulty in walking Onset Date 03/02/18 Precautions Lumbar Precautions Log Roll No Twisting Limit Bending Lifting Restriction of 10 lbs Gait Belt above Incisional Area M3 PT-IP Subjective Start: 03/03/18 11:37 Freq: Status: Active Protocol: Document 03/07/18 12:00 CLB (Rec: 03/07/18 13:44 CLB [id number]) Subjective Physical Therapy Visit Type Type Treatment Note Visit Start Time 11:50 Visit Stop Time 12:10 Number of CHECK CLERK Visits 3 Physical Therapy Visit Comments Patient Comments Willing to ambulate Therapy Pain Assessment Pain When Pain Assessed During Mobility Pain Present Pain Present Pain Reported Location Back Intensity 4 Scale Used Numeric (1 - 10) M4 PT-IP Mobility and Gait Start: 03/03/18 11:37 Freq: Status: Active Protocol: Document 03/07/18 12:00 CLB (Rec: 03/07/18 13:44 CLB [id number]) PT-Transfer Assessment Sit to and From Stand Sit to and from Stand Minimal Assistance 1 Person Assistance Use of Upper Extremities Equipment Transfer Assistive Device Gait Belt Front Wheeled Walker Orthotic/Prosthetic Devices or Brace: No Transfers Transfer Destination Chair Transfer Technique Stand Step Pivot Transfer Ability Level of Assist Minimal Assistance 1 Person Assistance Use of Upper Extremities Gait Assessment Gait Gait Assistance Required: Contact Guard Assist 1 Person Assist Distance (Feet) 20 Assistive Devices Assistive Device Gait Belt Front Wheeled Walker Orthotic/Prosthetic Devices or Brace: No Gait Deviations General Gait Pattern Decreased Stride Length Decreased Feet Clearance Flexed Trunk Narrow Based Gait Step-to Gait Factors Limiting Gait Function Factors Limiting Gait Function Decreased Activity Tolerance Decreased Strength Pain Comments Gait Comments Pt ambulates slowly with step to gait pattern. M5 PT-IP Objective Assessments Start: 03/03/18 11:37 Freq: Status: Active Protocol: Document 03/05/18 14:00 AB (Rec: 03/05/18 17:28 AB [id number]) Orientation Orientation/Cognition Level of Alertness Alert Orientation Name Age Birthday Month Date Year Day of Week Place Situation Safety Awareness Decreased Safety Awareness Gross Range of Motion Lower Extremity ROM Assessment Within Functional Limits Strength Lower Extremity Strength Assessment Bilaterally Impaired Comments Strength Comments BLE weakness R>L LLE: 4-/5 RLE 3+/5 Sensation Assessment Sensation Gross Sensation WNL M6 PT-IP Treatment Start: 03/03/18 11:37 Freq: Status: Active Protocol: Document 03/06/18 14:25 GGD (Rec: 03/06/18 15:04 GGD [id number]) Physical Therapy Treatment Education Education Provided Precautions M7 PT-IP Assessment and Plan Start: 03/03/18 11:37 Freq: Status: Active Protocol: Document 03/07/18 12:00 CLB (Rec: 03/07/18 13:44 CLB [id number]) PT Summary Assessment and Plan Summary Impairments Pain ROM Strength Balance Coordination Sensation Tone Cognition Bed Mobility Transfers Gait Activity Tolerance Progress Towards Goals Slow Progress due to Pain Slow Progress due to Medical Issues Slow Progress due to Activity Tolerance Assessment Summary Pt is motivated to get up and ambulate and wants to stay up in chair. Pt reports 4/10 pain at rest and with mobility. Pt requires Min A for sit-stand. Goals Bed Mobility Goal Standby Assistance Transfer Goal Standby Assistance Front Wheeled Walker Gait Goal Standby Assistance Front Wheel Walker Gait Distance 100 Days to Meet Goals 5 Frequency of Treatment Frequency Of Treatment Twice a Day Treatment Plan Physical Therapy Treatment Plan Bed Mobility Training Transfer Training Gait Training Therapeutic Exercise Balance Retraining Post Op Education Discharge Planning Hot or Cold Pack Neuromuscular Re-ed Coordination Retraining Manual Therapy Recommendations To Nursing Amount of Assist Needed 2 Person Assist Discharge Recommendations PT Discharge Recommendations SNF Rehab
--- NOTE | 2018-03-07 15:05 | CM.DPC ---
DCP Cont: Lina from [facility] called. Stated that she needs updated therapy notes from today. Informed her that therapy did work with her today. Will fax over now. She stated the doctor in house can review. Tara Ariza RN/Tandem Operator
[2018-03-07] MEDS: hydrOXYzine pamoate 25 MG CAPSULE PO (17:22)
[2018-03-07] MEDS: HYDROMORPHONE 4 MG TABLET PO ×2 (17:22→21:07)
[2018-03-07] MEDS: GABAPENTIN 300 MG CAPSULE PO (20:59)
[2018-03-07] MEDS: SENNOSIDES 8.6 MG TABLET 17.2 MG PO (20:59)
[2018-03-08] VITALS (8 sets, daily range): BP systolic 113–134; BP diastolic 68–76; PULSE 82–93; RESP 16–20; TEMP 36.3–36.7; O2SAT 92–97
--- NOTE | 2018-03-08 | DI.RAD.S_ITS ---
PROCEDURE: XR CHEST 1V INDICATIONS: SHORTNESS OF BREATH- POST OP TECHNIQUE: One view of the chest was acquired. COMPARISON: None. FINDINGS: Surgical changes and devices: None. Lungs and pleura: No pleural effusions or pneumothorax. Lungs are clear. Mediastinum: Mediastinal contours appear normal. Heart size is normal. Bones and chest wall: No suspicious bony lesions. Overlying soft tissues appear unremarkable. IMPRESSION: No acute cardiopulmonary pathology. Dictated by: Iftikhar Noriega M.D. on 03/08/2018 at 13:30 Approved by: Iftikhar Noriega M.D. on 03/08/2018 at 13:32
[2018-03-08] MEDS: HYDROMORPHONE 2 MG TABLET PO ×3 (03:10→12:04)
[2018-03-08] MEDS: hydrOXYzine pamoate 25 MG CAPSULE PO ×4 (03:10→21:15)
--- NOTE | 2018-03-08 07:37 | P.DS_ITS ---
History of Present Illness Date Patient Seen: 03/08/18 Chief complaint: [id number] Narrative: Patient seen bedside status post 2 part lami/fusion surgeries by Dr. Roper. She is POD #6. She is doing better, states that she got the best night sleep yet last night. She will be going to a SNF today if her insurance authorizes it. Discharge Providers Date of admission: 03/02/18 11:54 Consults: 03/04/18 16:33 Consult to Occupational Therapy Evaluate & Treat Comment: Physician Instructions: Evaluate and treat Consult to Physical Therapy Evaluate & Treat Comment: Physician Instructions: Evaluate and Treat Discharge provider: Sarah Beth Farias PA-C Discharge Date: 03/08/18 Summary Discharge Diagnosis: Lumbar spine stenosis Lumbar spine osteoarthritis Hospital Course: Patient admitted to the hospital status post 2 part lami/ fusion surgeries by Dr. Roper completed on 03/02/18 and 03/04/18. Patient tolerated the procedures well with no major complications. She was transferred to the acute care floor where she was recommended for discharge to a SNF. Patient was stable and ready for d/c to [facility] on 03/08/18. Status at Discharge Cognitive/behavioral status at discharge: Alert & oriented x3 Functional status at discharge: uses cane/walker Overall status at discharge: patient is progressing back to baseline Time Spent with Patient Less than 30 minutes Exam Vital Signs (past 8 hours): - 03/08/18 00:15 03/08/18 05:20 Temperature 97.8 F 97.6 F Pulse Rate 88 88 Respiratory Rate 19 20 Blood Pressure 134/70 113/68 Pulse Oximetry 97 92 Fraction of Inspired Oxygen 21 Oxygen Delivery Method Nasal Cannula Oxygen Flow Rate 2 Narrative Exam Narrative: WDWN NAD A&Ox3. Surgical dressing CDI, no signs of discharge. Calves are soft and compressible with FROM of the ankles and knees. No focal deficits noted. Objective Labs Result Diagrams: 03/05/18 06:43 03/05/18 06:43 Discharge Plan Discharge Plan Patient Disposition: SNF Transfer to: [facility] Under care of provider: PCP I certify the postop hospital long term care is medically necessary on a continuing basis for any conditions for which he/ she received care during this hospitalization.: Yes The receiving facility has agreed to accept transfer and provide medical treatment.: Yes Discharge Med Rec/Prescriptions Prescriptions: New celecoxib [Celebrex] 200 mg Capsule 200 mg PO BID Qty: 0 RF: 0 docusate sodium 100 mg Capsule 100 mg PO BID Qty: 0 RF: 0 hydroxyzine pamoate 25 mg Capsule 25 mg PO Q4HR PRN (Reason: Nausea And Vomiting) Qty: 0 RF: 0 hydromorphone 2 mg Tablet 2 mg PO Q3H PRN (Reason: Pain, Severe (7-10)) Qty: 20 RF: 0 Continue hydrochlorothiazide 25 mg Tablet 25 mg PO DAILY RF: 0 metronidazole 0.75 % Gel 1 applic TOPICAL DAILY RF: 0 Provider Discharge Instructions Diet: Diet as Tolerated Cold/Heat Therapy: Apply ice to surgical site 20 minutes at a time as needed Skin/Wound/Dressing Care Report to your healthcare provider any signs of infection, such as:: chills, fever, night sweats, increased pain and unusual drainage Special Rehabilitation Services Reason for rehabilitation: Post-operative therapy Rehab type: Physical therapy and Occupational therapy Restrictions to mobility: WBAT, limit bending/twisting, lifting greater than 10 lbs. Visit Report/Discharge Packet Instructions: DI for Transforaminal Lumbar Interbody Fusion Discharge Data Attending Provider: Shon Roper Admit Date/Time: 03/02/18 11:54
[2018-03-08] MEDS: ACETAMINOPHEN 325 MG TABLET 650 MG PO (08:41)
[2018-03-08] MEDS: CELECOXIB 200 MG CAPSULE PO ×2 (08:41→21:13)
[2018-03-08] MEDS: DOCUSATE 100 MG CAPSULE PO ×2 (08:42→21:13)
[2018-03-08] MEDS: hydroCHLOROthiazide 25 MG TABLET PO (08:42)
--- NOTE | 2018-03-08 08:56 | PC.NURSE ---
Addendum entered by Carrie Dawkins R.N. 03/08/18 16:04: Late entry: (approx 1500) This engineering writer spoke with Dr Roper and informed him of the results of the CBC/BMP and chest x-ray. Received order to collect UA, given fluids bolus and cancel discharge for today. Original Note: Addendum entered by Carrie Dawkins R.N. 03/08/18 12:47: Chest x-ray being done at this time. Original Note: Addendum entered by Carrie Dawkins R.N. 03/08/18 12:43: This engineering writer received call back from EDWIN Fairas re: items outlined below. She stated she thinks the SOB is more likely related to atelectasis and that we need to have her OOB more and using her IS frequently. Anticipate orders for CBC, CMP and chest x-ray. Original Note: Addendum entered by Carrie Dawkins R.N. 03/08/18 11:00: Per PT/OT, patient remains very difficult to transfer (see their notes). Patient reportedly dizzy and diaphoretic with activity. O2 sats down to 88% with activity. Patient appears pale. Last H/H was on 03/05 and was 10.7/33.3. Note faxed to EDWIN Farias (she saw patient this morning and is down in surgery) informing her of the same. Awaiting call back. Patient resting up in chair now. Call light in reach. Patient agrees not to get up without staff assist. Original Note: GI: Patient's last documented BM was 03/01. This engineering writer talked with patient about this. She denies feeling constipated, and states besides, I have hardly eaten anything since I've been in here. This engineering writer advised that we try Ducolax suppository or MOM this morning just to try and get things moving. Patient categorically refused both. BT+, abd soft and nontender. Reports passing lots of gas this morning. Given stool softener as ordered. Given prune juice.
--- NOTE | 2018-03-08 09:50 | PT.IPTN ---
Current Diagnoses Scoliosis, unspecified (03/02/18) Spinal stenosis, lumbar region with neurogenic claudication (03/02/18) Surgery Performed Operation Date: 03/02/18 14:00 Actual Procedures p L1-2,L2-3,L3-4,L4-5 Anterior Instru. Fusion(XLIF)(Right) - Shon Roper MD Operation Date: 03/04/18 07:45 Actual Procedures p L1-2,L2-3,L3-4,L4-5,L5-S1 Posterior Instru. Fusion w/Bone Graft, L1-S1 Laminectomies - Shon Roper MD Physical Therapy Treatment Note M2 PT-IP Current Condition Start: 03/03/18 11:37 Freq: Status: Active Protocol: Document 03/05/18 14:00 AB (Rec: 03/05/18 17:28 AB [id number]) Physical Therapy Current Condition Current Condition Evaluation Date 03/03/18 Treatment Diagnosis s/p L1-L5 anterior/posterior fusion, difficulty in walking Onset Date 03/02/18 Precautions Lumbar Precautions Log Roll No Twisting Limit Bending Lifting Restriction of 10 lbs Gait Belt above Incisional Area M3 PT-IP Subjective Start: 03/03/18 11:37 Freq: Status: Active Protocol: Document 03/08/18 09:10 CLB (Rec: 03/08/18 09:50 CLB [id number]) Subjective Physical Therapy Visit Type Type Treatment Note Visit Start Time 09:10 Visit Stop Time 09:35 Total Visit Minutes 25 Number of ANIMAL ECOLOGIST Visits 4 Physical Therapy Visit Comments Patient Comments Pt agreeable to do therapy. Therapy Pain Assessment Pain When Pain Assessed During Mobility Pain Present Pain Present Pain Reported Location Right Hip Intensity 9 Scale Used Numeric (1 - 10) Pain Behaviors Calling Out Facial Grimacing Moaning Restlessness Pain Management Techniques Modification of Treatment Re-positioning Timing of Activity with Medications M4 PT-IP Mobility and Gait Start: 03/03/18 11:37 Freq: Status: Active Protocol: Document 03/08/18 09:10 CLB (Rec: 03/08/18 09:50 CLB [id number]) PT-Bed Mobility Assessment Rolling Type of Rolling Log Rolling Level of Assist Moderate Assistance 2 Person Assistance Sit to Supine Sit to Supine Maximum Assistance 2 Person Assistance Head of Bed Elevated Bedrails PT-Transfer Assessment Sit to and From Stand Sit to and from Stand Moderate Assistance 1 Person Assistance Use of Upper Extremities Equipment Transfer Assistive Device Gait Belt Front Wheeled Walker Orthotic/Prosthetic Devices or Brace: No Transfers Transfer Destination Chair Bedside Commode Transfer Technique Stand Step Pivot Transfer Ability Level of Assist Minimal Assistance Moderate Assistance 1 Person Assistance Use of Upper Extremities Comments Mobility Comments Pt with increased pain this morning and needed increased assist OOB. Pt had great difficulty from supine to sit even with two persons and HOB elevated. O2 after transfer 99 % and HR 89. Gait Assessment Comments Gait Comments Pt unable to ambulate due to pain. M5 PT-IP Objective Assessments Start: 03/03/18 11:37 Freq: Status: Active Protocol: Document 03/05/18 14:00 AB (Rec: 03/05/18 17:28 AB [id number]) Orientation Orientation/Cognition Level of Alertness Alert Orientation Name Age Birthday Month Date Year Day of Week Place Situation Safety Awareness Decreased Safety Awareness Gross Range of Motion Lower Extremity ROM Assessment Within Functional Limits Strength Lower Extremity Strength Assessment Bilaterally Impaired Comments Strength Comments BLE weakness R>L LLE: 4-/5 RLE 3+/5 Sensation Assessment Sensation Gross Sensation WNL M6 PT-IP Treatment Start: 03/03/18 11:37 Freq: Status: Active Protocol: Document 03/06/18 14:25 GGD (Rec: 03/06/18 15:04 GGD [id number]) Physical Therapy Treatment Education Education Provided Precautions M7 PT-IP Assessment and Plan Start: 03/03/18 11:37 Freq: Status: Active Protocol: Document 03/08/18 09:10 CLB (Rec: 03/08/18 09:50 CLB [id number]) PT Summary Assessment and Plan Summary Impairments Pain ROM Strength Balance Coordination Sensation Tone Cognition Bed Mobility Transfers Gait Activity Tolerance Progress Towards Goals Slow Progress due to Pain Slow Progress due to Medical Issues Slow Progress due to Activity Tolerance Assessment Summary Pt with increased pain and was unable to ambulate. Pt needed increased assist OOB as well as with transfers to BSC and chair. Pt was transfered from bed to BSC with stand pivot then BSC to chair with stand pivot. Pt will greatly benefit from skilled rehab before returning home. Goals Bed Mobility Goal Standby Assistance Transfer Goal Standby Assistance Front Wheeled Walker Gait Goal Standby Assistance Front Wheel Walker Gait Distance 100 Days to Meet Goals 5 Frequency of Treatment Frequency Of Treatment Twice a Day Treatment Plan Physical Therapy Treatment Plan Bed Mobility Training Transfer Training Gait Training Therapeutic Exercise Balance Retraining Post Op Education Discharge Planning Hot or Cold Pack Neuromuscular Re-ed Coordination Retraining Manual Therapy Recommendations To Nursing Amount of Assist Needed 2 Person Assist Discharge Recommendations PT Discharge Recommendations SNF Rehab
--- NOTE | 2018-03-08 10:00 | CM.DPC ---
Addendum entered by Mary Cornejo LPN 03/08/18 15:09: DCP: Yassine Pam left a vm that she had not yet received the therapy notes requested. Confirmed that these did go through with fax confirmation receipt noted at 1:06 PM today. Called Pam back. She noted she had some confusion re the episodes of care and was looking at the UR piece. She has now located the therapy notes and sent these on to physician reviewed. She says the case will go back to [facility] [facility] tomorrow. Spoke then with JESUS Butler. She reports she was finally able to get through to Dr. Roper who ordered a chest x ray, labs and UTI. White count is elevated, per Britta. IV fluid bolus will be given. DC is cancelled for today by Dr. Roper per verbal order to Carrie.. KAYE Green has updated Pam/[facility] FRAUSTO. Original Note: Addendum entered by Mary Cornejo LPN 03/08/18 12:24: Pam/Yassine RAHMAN has called. Says the physician is requesting today's therapy notes/faxed now. The [facility] team is having difficulty understanding the reasons for the differences in mobility yesterday (min and taking ambulating) with today, based on the documentation. Went over notes of yesterday and then today with her and discussed the findings of the DC meeting planner when meeting with pt this morning..... Will be following. [facility] F[facility] cannot accept pt later than 1500 today/Pam is updated on events thus far. JESUS Butler still waiting for a call back from ortho EDWIN Burleson who is working in surgery today. Original Note: Addendum entered by Mary Cornejo LPN 03/08/18 10:29: Met with pt for update. She is found up in the chair, looking pale, on , appears short of breath when speaking. OT Karrie, currently working with her, says that when pt stood to transfer her o2 stats went to 88% and thus o2 was placed. A check in with JESUS Butler and then with Rn marcus Orozco shows last H&H checked on the . They plan to discuss further with the ortho team. OT confirms that pt is a mod to max (bed) of 2 assist and the complexity of the spinal surgery makes for a recomendation that only appropriate transportation would be by amubulance/BLS. Jayne Mitchell/Pam is updated. She confirms they have a bed for her when she is stable for same. P: [facility] CC: BLS: pending medical stability and pending receipt of Yassine auth. PASRR: needed. will complete now and fax to [facility] Original Note: Addendum entered by Mary Cornejo LPN 03/08/18 10:16: Spoke with Pam/Jayne FRAUSTO. She still has to get ok from retirement administrator Phani and the admissions nurse before final acceptance of pt today. She does not anticipate a problem but there referral process, she says, is new and in process as there long time admission coordinator Nany no longer works at that facility. Original Note: DCP: continued: Case received and EMR for last few days is reviewed. DC to snf order is noted by Ortho PA Sarah Beth Fraser. She is aware that insurance has not yet given auth for d/c to [facility]. Spoke with Pam/Yassine CM, on for Lina who is off today. She reports that the clinical information has been given to the Roll Mechanic who does initial review and then will pass on the case to the Physican review. She states this is the process for all planned surgeries. Encouraged her to consider the comlexity of the scheduled 2 part spinal surgery and she says this will be noted. She expects to have an answer by noon. Of note: pt with no BM since 03/02 and reluctant to take medication for same. She is passing flatus and taking prune juice. JESUS Dia's note will be included in the snf information when/if she does go to the facility. Will update Jayne FRAUSTO and also check on transport options. Pt is currently a 2 person assist and am unsure what her pain level is in terms of tolerating upright w/c van transport. Will check in with pt now and follow.
--- NOTE | 2018-03-08 11:12 | OT.IP.TRT ---
Current Diagnoses Scoliosis, unspecified (03/02/18) Spinal stenosis, lumbar region with neurogenic claudication (03/02/18) Surgery Performed Operation Date: 03/02/18 14:00 Actual Procedures p L1-2,L2-3,L3-4,L4-5 Anterior Instru. Fusion(XLIF)(Right) - Shon Roper MD Operation Date: 03/04/18 07:45 Actual Procedures p L1-2,L2-3,L3-4,L4-5,L5-S1 Posterior Instru. Fusion w/Bone Graft, L1-S1 Laminectomies - Shon Roper MD Occupational Therapy Treatment Note M2 OT-IP Current Condition Start: 03/03/18 13:30 Freq: Status: Active Protocol: Document 03/05/18 15:21 [facility] (Rec: 03/05/18 15:52 [facility] [id number]) Occupational Therapy Current Condition Current Condition Evaluation Date 03/05/18 Treatment Diagnosis Lumbar stenosis Diagnosis Onset Date 03/02/18 Post Operative Precautions Lumbar Precautions Log Roll No Twisting Limit Bending Lifting Restriction of 10 lbs Gait Belt above Incisional Area Other Precautions log roll Weight Bearing Status Weight Bearing Status Full Weight Bearing M3 OT- IP Subjective and Pain Start: 03/03/18 13:30 Freq: Status: Active Protocol: Document 03/08/18 10:52 [facility] (Rec: 03/08/18 11:11 [facility] [id number]) OT- Subjective Occupational Therapy Visit Type Type Treatment Note Visit Start Time 10:00 Visit Stop Time 10:45 Total Visit Minutes 45 Notes Pt agreeable to try to get up. Occupational Therapy Visit Comments Patient/Caregiver Goals Pt realizes that she will benefit from going to skilled rehab prior to going home. OT Pain Assessment Pain When Pain Assessed At Rest Pain Present Pain Present Pain Reported Location Right Hip Intensity 5 Scale Used Numeric (1 - 10) Description Aching Radiating Pain Behaviors Holding Area Wincing Management Techniques Apply Cold Re-positioning Timing of Activity with Medications M4 OT- IP ADL's Start: 03/03/18 13:30 Freq: Status: Active Protocol: Document 03/08/18 10:52 [facility] (Rec: 03/08/18 11:11 [facility] [id number]) OT ADL-Grooming General Evaluation Grooming Ability Standby Assistance Total Assistance Areas Needing Assistance Retrieving/Set-up of Grooming Items Comments OT Grooming Comments Attempted to stand at sink for grooming and needing MODA X 2 to stand from recliner and MODA x 1 with FWW to take three steps to the sink. Pt not able to stand without support of therapist or holding to couunter long enough to initiate any grooming needs and therefore from prior level of standing for grooming needs would be total assist. Therefore pt had to sit to do all grooming needs at this time-set-up assist. OT ADL-Oral Care General Eval Oral Care Ability Independent OT ADL-Dressing General Eval Lower Body Dressing Ability Maximum Assistance Areas Needing Assistance Socks Comments OT Dressing Comments Pt MAX A for all LB dressing at this time due to back precautions. Able to educated pt on AED for LB dressing and able to put on socks while sitting with set-up assist. At this time pt would require MAX A x1-2 for balance and assist to help put on pants especially while standing to pull up over her hips. One person to stand from balance and another to assist to pull up brief/pants. OT ADL-Bathing Comments OT Bathing Comments At this time pt only able to tolerate sponge bath. M6 OT- IP Functional Cognition Start: 03/03/18 13:30 Freq: Status: Active Protocol: Document 03/08/18 10:52 [facility] (Rec: 03/08/18 11:11 [facility] [id number]) Cognitive Factors Limiting Selfcare Function Cognitive Ability Level of Alertness Alert Patient Orientation Name Place Situation Attention Span Ability Capable of Focused Attention Capable of Sustained Attention Ability to Follow Commands Able to Follow One Step Commands Memory Description Short Term Impaired Cognitive Comments Cognitive Assessment Comments At this time pt is very frustrated due to feeling that she is not doing as well as she was from the first back surgery and needing encouragement to attempt ADL's .Nursing notified of her emotional state. M7 OT- IP Mobility and Balance Start: 03/03/18 13:30 Freq: Status: Active Protocol: Document 03/08/18 10:52 [facility] (Rec: 03/08/18 11:11 [facility] [id number]) OT-Transfer Assessment Sit to and From Stand Sit to and from Stand Moderate Assistance 2 Person Assistance Comments Mobility Comments Pt needing MODA x 2 to stand from recliner. Pt's O2 on RA [id number]% and after standing drops to 87%, nursing notified and O2 on 1L placed and O2 readings from 91-96%. Pt educated to continue to use spirometer often as currently pt not as mobile or moving as much. O2 reading improved to 99% and maintained without O2 on 1L AT 97%. Pt complains of being dizzy, and hot after getting up BP 111/50. OT- Gait Assessment Gait Gait Assistance Required: Moderate Assistance 1 Person Assist Distance (Feet) 4 Assistive Devices Assistive Device Gait Belt Front Wheeled Walker Comments Gait Ability Comments Pt able to take 3 steps with FWW and MODA x 1 for balance and steadying while trying to get to the sink for grooming needs. OT- Balance Assessment Sitting Balance and Reactions Static Sitting Balance Ability Good Dynamic Sitting Balance Ability Fair Standing Balance and Reactions Static Standing Balance Ability Poor Dynamic Standing Balance Ability Poor M8 OT- IP Objective Assessments Start: 03/03/18 13:30 Freq: Status: Active Protocol: Document 03/05/18 15:21 [facility] (Rec: 03/05/18 15:52 [facility] [id number]) OT Gross Range of Motion Upper Extremity Range of Motion Assessment Within Functional Limits OT Strength Upper Extremity Strength Assessment Right Impaired Comments Strength Comments RUE 4/5, LUE 4+/5 OT- Coordination Assessment Comments Coordination Comments Pt improved for right hand coordination and able to use for set-up for grooming needs while sitting. M9 OT- IP Assessment and Plan Start: 03/03/18 13:30 Freq: Status: Active Protocol: Document 03/08/18 10:52 [facility] (Rec: 03/08/18 11:11 [facility] [id number]) OT Summary Assessment and Plan Potential Rehabilitation Potential Good Analytic Complexity at Evaluation Moderate Summary OT Impairments Pain Strength Balance Functional Cognition Functional Mobility Grooming Dressing Toileting Bathing Toilet Transfers Shower Transfers Progress Towards Goals Slow Progress due to Pain Slow Progress due to Medical Issues Slow Progress due to Activity Tolerance Slow Progress due to Cognition Assessment Summary Pt MOD complexity and continues to need extensive assist of 1-2 persons for all ADl's and functional mobility, use of O2 during activity, and is far from her baseline of living home alone and independent. Pt has good potential for skilled rehab to get back to prior level of care. Goals Self-Feeding Goal Independent Grooming Goal Standby Assistance Dressing Goal Minimal Assistance Toileting Goal Minimal Assistance Bathing Goal Moderate Assistance Toilet Transfer Goal Minimal Assistance Shower Transfer Goal Moderate Assistance Patient/Caregiver Education Goal Demonstrate Post-Op Precautions Caregiver Independent Assisting Patient Days to Meet Goals 7 Frequency of Treatment Frequency Of Treatment Once a Day Treatment Plan OT Treatment Plan ADL Training Functional Cognition Training Functional Mobility Patient/Family Education Discharge Planning Discharge Recommendations OT Discharge Recommendations SNF Rehab Home Equipment Needs shower chair
[2018-03-08 13:35] LABS: BUN Creatinine Ratio 31.7 (6-22); Blood Urea Nitrogen 19 mg/dL (7-17); Calcium 8.2 mg/dL (8.4-10.2); Carbon Dioxide 26 mmol/L (22-32); Chloride 98 mmol/L (98-107); Estimated Glomerular Filt Rate > 60.0 mL/min (>60); Glucose 119 mg/dL (80-110); HEMOLYSIS 44 (0-50); Potassium 3.6 mmol/L (3.4-5.1); Sodium 137 mmol/L (137-145)
[2018-03-08 13:57] LABS: Add Manual Diff / Slide Review NO; Basophils Percent Auto 0.6 % (0-2); Eosinophils Percent Auto 1.4 % (2-4); Hematocrit 31.4 % (36-46); Hemoglobin 10.3 g/dL (12.0-16.0); Mean Corpuscular HGB Conc 32.8 % (30-36); Mean Corpuscular Hemoglobin 25.1 PG (26-34); Mean Corpuscular Volume 76.4 fL (80-100); Monocytes Percent Auto 7.3 % (3-14); Neutrophils Absolute Auto 12800 /uL (3000-5900); Neutrophils Percent Auto 79.7 % (50-75); Platelet Count 462 X10^3/uL (150-400); Red Blood Cell Count 4.11 X10^6/uL (4.0-5.2); Red Cell Distribution Width 16.2 % (11.6-14.8)
--- NOTE | 2018-03-08 16:00 | PT.IPTN ---
Current Diagnoses Scoliosis, unspecified (03/02/18) Spinal stenosis, lumbar region with neurogenic claudication (03/02/18) Surgery Performed Operation Date: 03/02/18 14:00 Actual Procedures p L1-2,L2-3,L3-4,L4-5 Anterior Instru. Fusion(XLIF)(Right) - Shon Roper MD Operation Date: 03/04/18 07:45 Actual Procedures p L1-2,L2-3,L3-4,L4-5,L5-S1 Posterior Instru. Fusion w/Bone Graft, L1-S1 Laminectomies - Shon Roper MD Physical Therapy Treatment Note M2 PT-IP Current Condition Start: 03/03/18 11:37 Freq: Status: Active Protocol: Document 03/05/18 14:00 AB (Rec: 03/05/18 17:28 AB [id number]) Physical Therapy Current Condition Current Condition Evaluation Date 03/03/18 Treatment Diagnosis s/p L1-L5 anterior/posterior fusion, difficulty in walking Onset Date 03/02/18 Precautions Lumbar Precautions Log Roll No Twisting Limit Bending Lifting Restriction of 10 lbs Gait Belt above Incisional Area M3 PT-IP Subjective Start: 03/03/18 11:37 Freq: Status: Active Protocol: Document 03/08/18 15:35 [facility] (Rec: 03/08/18 15:59 CLB [id number]) Subjective Physical Therapy Visit Type Type Patient Refusal Notes Pt just returned to bed after getting up to [facility] and has respectfully declined getting up at this time. Will see pt in AM.
[2018-03-08] MEDS: SODIUM CHLORIDE 0.9% 1,000 ML 1000 ML IV (16:54)
[2018-03-08] MEDS: HYDROMORPHONE 4 MG TABLET PO ×2 (17:05→21:11)
[2018-03-08] MEDS: GABAPENTIN 300 MG CAPSULE PO (21:13)
[2018-03-08] MEDS: SENNOSIDES 8.6 MG TABLET 17.2 MG PO (21:14)
[2018-03-09] VITALS (8 sets, daily range): BP systolic 119–130; BP diastolic 61–69; PULSE 78–88; RESP 16–20; TEMP 36.2–36.8; O2SAT 92–100
[2018-03-09] MEDS: SODIUM CHLORIDE 0.9% 1,000 ML 100 ML IV ×3 (00:45→22:56)
--- NOTE | 2018-03-09 01:30 | PC.NURSE ---
bo note pt up in chair, needing to use BSC. Pt reports right hip pain. Pt assisted up to BSC with gait belt and FWW. Pt reports that sometimes her right leg will not support her weight. Multiple medications given for pain, ice packs. Pt says she is too tired to get OOB, so has been using bedpan. IV bolus started, but L AC IV extremely positional, then not functioning. Tried twice to restart IV. Had to call ICU to come start new IV. UA sent.
--- NOTE | 2018-03-09 02:35 | PC.NURSE ---
Child Care Coordinator Note: 0030: Awake, resting in bed. Vital signs stable. IV in place in rt forearm with NS infusing at 100cc/hr. Bolus of NS just now finishing and maintenance rate of 100cc/hr starting at this time. Pt states her pain is under control at this time.
[2018-03-09] MEDS: hydrOXYzine pamoate 25 MG CAPSULE PO ×4 (04:17→19:03)
[2018-03-09] MEDS: HYDROMORPHONE 2 MG TABLET PO ×4 (04:17→17:41)
[2018-03-09 06:30] LABS: Add Manual Diff / Slide Review NO; Basophils Percent Auto 0.7 % (0-2); Hematocrit 28.2 % (36-46); Lymphocytes Percent Auto 12.8 % (25-40); Mean Corpuscular HGB Conc 31.9 % (30-36); Mean Corpuscular Hemoglobin 24.6 PG (26-34); Monocytes Percent Auto 6.5 % (3-14); Neutrophils Absolute Auto 8700 /uL (3000-5900); Platelet Count 378 X10^3/uL (150-400); Red Blood Cell Count 3.67 X10^6/uL (4.0-5.2); Red Cell Distribution Width 16.2 % (11.6-14.8); White Blood Cell Count 11.3 X10^3/uL (4.5-11.0)
[2018-03-09 06:37] LABS: BUN Creatinine Ratio 22.9 (6-22); Blood Urea Nitrogen 16 mg/dL (7-17); Carbon Dioxide 30 mmol/L (22-32); Chloride 100 mmol/L (98-107); Estimated Glomerular Filt Rate > 60.0 mL/min (>60); Glucose 102 mg/dL (80-110); HEMOLYSIS < 15 (0-50); Potassium 3.2 mmol/L (3.4-5.1); Sodium 137 mmol/L (137-145)
--- NOTE | 2018-03-09 07:41 | PM.PNPO.1 ---
Subjective Date Patient Seen: 03/09/18 Time Patient Seen: 07:41 Interval history: She had been feeling better on Thursday but yesterday whenever she tried to get up and walk she became very lightheaded. She is feeling fine laying in bed right now. Exam Vital Signs (past 8 hours): - 03/09/18 00:20 03/09/18 04:10 Temperature 97.3 F L 97.2 F L Pulse Rate 88 80 Respiratory Rate 16 20 Blood Pressure 120/68 130/68 Pulse Oximetry 92 93 Fraction of Inspired Oxygen 21 Oxygen Delivery Method Room Air Oxygen Flow Rate 2 Const Orientation: alert and oriented x3 Back/Spine/Pelvis Other: 5/5 motor both lower extremities Objective Labs Result Diagrams: 03/09/18 06:20 03/09/18 06:20 Labs: Laboratory Results - last 24 hr 03/08/18 03/08/18 03/09/18 13:09 13:09 06:20 WBC 16.0 H RBC 4.11 Hgb 10.3 L Hct 31.4 L MCV 76.4 L MCH 25.1 L MCHC 32.8 RDW 16.2 H Plt Count 462 H Neut % (Auto) 79.7 H Lymph % (Auto) 11.0 L [place] % (Auto) 7.3 Eos % (Auto) 1.4 L Baso % (Auto) 0.6 Neut # (Auto) 03540 H Sodium 137 137 Potassium 3.6 3.2 L Chloride 98 100 Carbon Dioxide 26 30 BUN 19 H 16 Creatinine 0.60 0.70 Estimated GFR > 60.0 > 60.0 BUN/Creatinine Ratio 31.7 H 22.9 H Glucose 119 H 102 Calcium 8.2 L 8.0 L 03/09/18 06:20 WBC 11.3 H RBC 3.67 L Hgb 9.0 L Hct 28.2 L MCV 77.0 L MCH 24.6 L MCHC 31.9 RDW 16.2 H Plt Count 378 Neut % (Auto) 77.0 H Lymph % (Auto) 12.8 L [place] % (Auto) 6.5 Eos % (Auto) 3.0 Baso % (Auto) 0.7 Neut # (Auto) 8700 H Sodium Potassium Chloride Carbon Dioxide BUN Creatinine Estimated GFR BUN/Creatinine Ratio Glucose Calcium Assessment & Plan Post-op Postoperative Procedures Operation Date: 03/02/18 14:00 Actual Procedures Side Surgeon p L1-2,L2-3,L3-4,L4-5 Anterior Instru. Fusion(XLIF) Right Shon Roper MD Operation Date: 03/04/18 07:45 Actual Procedures Side Surgeon p L1-2,L2-3,L3-4,L4-5,L5-S1 Posterior Instru. Fusion w/Bone Graft, L1-S1 Laminectomies Shon Roper MD her white count is almost back down to normal today. She had a urine culture done but unfortunately the urinalysis itself was not done and we will check that today. Her chest x-ray was normal. Afebrile. She does have some progressive acute blood loss anemia, but still not low enough for transfusion. Her potassium was low and we will supplement that today. I think her main issue is primarily dehydration as she has had low intake due to her low-grade nausea. She has now received significant IV fluid. If she is doing better today, could discharge.
--- NOTE | 2018-03-09 08:29 | CM.DPC ---
Addendum entered by Mary Cornejo LPN 03/09/18 17:09: Dr. Roper was here this afternoon. He is updated re the [facility] auth. He is now treating pt for an infection, says likely UTI and says he expects her to be ready to go to [facility] tomorrow. Original Note: Addendum entered by Mary Cornejo LPN 03/09/18 13:08: Did receive a call from Lina/Yassine. She confirms that the auth for [facility] will hold through tomorrow. If pt is not yet stable for d/c tomorrow and update will need to be faxed and a reauth obtained. [place]/[facility] called and was updated re above. Original Note: DCP: continued. Received vm from Fadi . She reports that pt has been authorized for d/c to [facility] today under her [facility] snf benefit. Lina will be the contact today for any specifics needed. Met now with pt in followup. She says she feels much better today and that Dr. Roper was here and told her that she would be in the hospital a couple more days before d/c. PT and OT to continue. She does at this point think she would be able to go via a w/c transport when ready for the snf transfer. Reviewed Dr. Roper's note now. His note says that pt is better after the interventions of yesterday and that she may be able to d/c later today if she continue to improve. It is unclear if he will be back in to see her today and if any changes will be made to the d/c orders put in yesterday by EDWIN Burleson. Discussed with JESUS Butler. Will be following. Will update [facility] and Metzger/Lina when more is known re the d/c date.
[2018-03-09] MEDS: ACETAMINOPHEN 325 MG TABLET 650 MG PO (08:55)
[2018-03-09] MEDS: MAGNESIUM HYDROXIDE 30 ML UDC PO (08:55)
[2018-03-09] MEDS: CELECOXIB 200 MG CAPSULE PO ×2 (08:56→20:03)
[2018-03-09] MEDS: POTASSIUM CHLORIDE 20 MEQ TAB PO ×2 (08:56→16:46)
[2018-03-09] MEDS: hydroCHLOROthiazide 25 MG TABLET PO (08:57)
[2018-03-09] MEDS: DOCUSATE 100 MG CAPSULE PO ×2 (08:57→16:44)
--- NOTE | 2018-03-09 13:36 | OT.IP.TRT ---
Current Diagnoses Scoliosis, unspecified (03/02/18) Spinal stenosis, lumbar region with neurogenic claudication (03/02/18) Surgery Performed Operation Date: 03/02/18 14:00 Actual Procedures p L1-2,L2-3,L3-4,L4-5 Anterior Instru. Fusion(XLIF)(Right) - Shon Roper MD Operation Date: 03/04/18 07:45 Actual Procedures p L1-2,L2-3,L3-4,L4-5,L5-S1 Posterior Instru. Fusion w/Bone Graft, L1-S1 Laminectomies - Shon Roper MD Occupational Therapy Treatment Note M2 OT-IP Current Condition Start: 03/03/18 13:30 Freq: Status: Active Protocol: Document 03/05/18 15:21 [facility] (Rec: 03/05/18 15:52 [facility] [id number]) Occupational Therapy Current Condition Current Condition Evaluation Date 03/05/18 Treatment Diagnosis Lumbar stenosis Diagnosis Onset Date 03/02/18 Post Operative Precautions Lumbar Precautions Log Roll No Twisting Limit Bending Lifting Restriction of 10 lbs Gait Belt above Incisional Area Other Precautions log roll Weight Bearing Status Weight Bearing Status Full Weight Bearing M3 OT- IP Subjective and Pain Start: 03/03/18 13:30 Freq: Status: Active Protocol: Document 03/09/18 13:24 [facility] (Rec: 03/09/18 13:36 [facility] [id number]) OT- Subjective Occupational Therapy Visit Type Type Treatment Note Visit Start Time 11:45 Visit Stop Time 12:15 Total Visit Minutes 30 Notes Pt wanting to use the bathroom . OT Pain Assessment Pain When Pain Assessed At Rest Pain Present Pain Present Denied Pain M4 OT- IP ADL's Start: 03/03/18 13:30 Freq: Status: Active Protocol: Document 03/09/18 13:24 [facility] (Rec: 03/09/18 13:36 [facility] [id number]) OT ADL-Dressing General Eval Lower Body Dressing Ability Maximum Assistance Areas Needing Assistance Underpants/Brief Comments OT Dressing Comments MAX A for all brief and hygiene needs. Educated pt to cassie RLE first as has more difficulty to move RLE, suggested pt look into getting toilet aid as pt states mainly bends to wipe in the front. Suggested to stand to wipe or use of toilet aid especially when able to stand without assist. Currently pt needs MODA to stand. OT ADL-Toileting General Evaluation Toileting Ability Maximum Assistance Areas Needing Assistance Manage Clothing Perform Perineal Hygiene Devices Toileting Assistive Devices Commode Comments OT Toileting Comments One person to stand pt and aid having to assist for hygiene needs and pull up brief over her hips. M6 OT- IP Functional Cognition Start: 03/03/18 13:30 Freq: Status: Active Protocol: Document 03/09/18 13:24 [facility] (Rec: 03/09/18 13:36 [facility] [id number]) Cognitive Factors Limiting Selfcare Function Cognitive Ability Level of Alertness Alert Patient Orientation Name Place Situation Attention Span Ability Capable of Focused Attention Capable of Sustained Attention Ability to Follow Commands Able to Follow Multi-Step Commands Memory Description Short Term Impaired Cognitive Comments Cognitive Assessment Comments Pt still needing reminders to incorporate back precautions for needs. M7 OT- IP Mobility and Balance Start: 03/03/18 13:30 Freq: Status: Active Protocol: Document 03/09/18 13:24 [facility] (Rec: 03/09/18 13:36 [facility] [id number]) OT-Transfer Assessment Sit to and From Stand Sit to and from Stand Moderate Assistance 1 Person Assistance Transfers Transfer Ability Moderate Assistance 1 Person Assistance Technique Transfer Destination Bedside Commode Chair Transfer Technique Stand Step Pivot Devices Transfer Assistive Devices Gait Belt Front Wheeled Walker Comments Mobility Comments Pt now needing one person to help come to stand MODA x 1, however as pt tires will need another person to assist. Pt states has been having to urinate 4-5 times at night. Encouraged pt to get up and use the BSC versus bedpan. OT- Balance Assessment Sitting Balance and Reactions Static Sitting Balance Ability Good Dynamic Sitting Balance Ability Fair Standing Balance and Reactions Static Standing Balance Ability Fair Dynamic Standing Balance Ability Poor M8 OT- IP Objective Assessments Start: 03/03/18 13:30 Freq: Status: Active Protocol: Document 03/05/18 15:21 [facility] (Rec: 03/05/18 15:52 [facility] [id number]) OT Gross Range of Motion Upper Extremity Range of Motion Assessment Within Functional Limits OT Strength Upper Extremity Strength Assessment Right Impaired Comments Strength Comments RUE 4/5, LUE 4+/5 OT- Coordination Assessment Comments Coordination Comments Pt having difficulty using right hand , states having trouble picking up items due to right hand swollen. OT Sensation Assessment Edema Edema Present Edema Comments Right hand swollen. M9 OT- IP Assessment and Plan Start: 03/03/18 13:30 Freq: Status: Active Protocol: Document 03/09/18 13:24 [facility] (Rec: 03/09/18 13:36 [facility] [id number]) OT Summary Assessment and Plan Potential Rehabilitation Potential Good Analytic Complexity at Evaluation Moderate Summary OT Impairments Pain Strength Balance Functional Cognition Functional Mobility Grooming Dressing Toileting Bathing Toilet Transfers Shower Transfers Progress Towards Goals Slow Progress due to Medical Issues Slow Progress due to Activity Tolerance Assessment Summary Pt improving with mobility and pain however still needing at least one person assist for all ADl's. Pt will continue to benefit from skilled rehab prior to going home. Goals Grooming Goal Standby Assistance Dressing Goal Minimal Assistance Toileting Goal Minimal Assistance Bathing Goal Moderate Assistance Toilet Transfer Goal Contact Guard Assistance Shower Transfer Goal Minimal Assistance Patient/Caregiver Education Goal Demonstrate Post-Op Precautions Caregiver Independent Assisting Patient Days to Meet Goals 7 Frequency of Treatment Frequency Of Treatment Once a Day Treatment Plan OT Treatment Plan ADL Training Functional Cognition Training Functional Mobility Patient/Family Education Discharge Planning Other Treatment Recommendations and Next Pt to walk to the bathroom Treatment Focus with FWW and MODAx1, and able to do all toileting needs with good safety and DWIGHT x1. Discharge Recommendations OT Discharge Recommendations SNF Rehab Home Equipment Needs shower chair
[2018-03-09 13:43] LABS: Appearance Urine UA CLEAR; Bilirubin Urine UA NEGATIVE (NEGATIVE); Color Urine UA YELLOW; Glucose Urine UA NEGATIVE (Normal); Ketones Urine UA NEGATIVE (NEGATIVE); Leukocyte Esterase Urine UA 2+ (NEGATIVE); Nitrite Urine UA NEGATIVE (Negative); Occult Blood Urine UA TRACE-INTACT (Negative); Protein Urine UA NEGATIVE (Negative); Urobilinogen Urine UA 0.2 E.U./dL (0.2)
[2018-03-09 13:46] LABS: Bacteria Urine Many (>30); Culture Indicated Urine Specimen Cultured; RBC Urine 1-5/HPF (0-5/HPF); Squamous Epithelial Cell Urine 1-5 /HPF; WBC Urine 30-100/HPF (0-5/HPF)
[2018-03-09] MEDS: CIPROFLOXACIN 400 MG/200 ML PIGGYBACK 200 MG IV (14:02)
--- NOTE | 2018-03-09 14:25 | CM.DPC ---
Called Rachael Mitchell to let her know patient will be coming tomorrow per Mary
--- NOTE | 2018-03-09 14:43 | PT.IPTN ---
Current Diagnoses Scoliosis, unspecified (03/02/18) Spinal stenosis, lumbar region with neurogenic claudication (03/02/18) Surgery Performed Operation Date: 03/02/18 14:00 Actual Procedures p L1-2,L2-3,L3-4,L4-5 Anterior Instru. Fusion(XLIF)(Right) - Shon Roper MD Operation Date: 03/04/18 07:45 Actual Procedures p L1-2,L2-3,L3-4,L4-5,L5-S1 Posterior Instru. Fusion w/Bone Graft, L1-S1 Laminectomies - Shon Roper MD Physical Therapy Treatment Note M2 PT-IP Current Condition Start: 03/03/18 11:37 Freq: Status: Active Protocol: Document 03/05/18 14:00 AB (Rec: 03/05/18 17:28 AB [id number]) Physical Therapy Current Condition Current Condition Evaluation Date 03/03/18 Treatment Diagnosis s/p L1-L5 anterior/posterior fusion, difficulty in walking Onset Date 03/02/18 Precautions Lumbar Precautions Log Roll No Twisting Limit Bending Lifting Restriction of 10 lbs Gait Belt above Incisional Area M3 PT-IP Subjective Start: 03/03/18 11:37 Freq: Status: Active Protocol: Document 03/09/18 08:40 [facility] (Rec: 03/09/18 14:43 [facility] [id number]) Subjective Physical Therapy Visit Type Type Treatment Note Visit Start Time 08:40 Visit Stop Time 08:59 Total Visit Minutes 19 Number of MAGICIAN HELPER Visits 5 Physical Therapy Visit Comments Patient Comments Pt wanting to use BSC. Therapy Pain Assessment Pain When Pain Assessed During Mobility Pain Present Pain Present Pain Reported Location Right Hip Intensity 9 Scale Used Numeric (1 - 10) Pain Behaviors Calling Out Facial Grimacing Moaning Restlessness Pain Management Techniques Modification of Treatment Re-positioning Timing of Activity with Medications M4 PT-IP Mobility and Gait Start: 03/03/18 11:37 Freq: Status: Active Protocol: Document 03/09/18 08:40 [facility] (Rec: 03/09/18 14:43 CLB [id number]) PT-Bed Mobility Assessment Rolling Type of Rolling Log Rolling Level of Assist Moderate Assistance 2 Person Assistance Supine to Sit Supine to Sit Maximum Assistance 2 Person Assistance Scooting Scooting to Edge of Bed Minimal Assistance PT-Transfer Assessment Sit to and From Stand Sit to and from Stand Moderate Assistance 1 Person Assistance Use of Upper Extremities Equipment Transfer Assistive Device Gait Belt Front Wheeled Walker Orthotic/Prosthetic Devices or Brace: No Transfers Transfer Destination Chair Bedside Commode Transfer Technique Stand Step Pivot Transfer Ability Level of Assist Moderate Assistance 1 Person Assistance Use of Upper Extremities Gait Assessment Comments Gait Comments Pt unable to ambulate due to pain. M5 PT-IP Objective Assessments Start: 03/03/18 11:37 Freq: Status: Active Protocol: Document 03/05/18 14:00 AB (Rec: 03/05/18 17:28 AB [id number]) Orientation Orientation/Cognition Level of Alertness Alert Orientation Name Age Birthday Month Date Year Day of Week Place Situation Safety Awareness Decreased Safety Awareness Gross Range of Motion Lower Extremity ROM Assessment Within Functional Limits Strength Lower Extremity Strength Assessment Bilaterally Impaired Comments Strength Comments BLE weakness R>L LLE: 4-/5 RLE 3+/5 Sensation Assessment Sensation Gross Sensation WNL M6 PT-IP Treatment Start: 03/03/18 11:37 Freq: Status: Active Protocol: Document 03/06/18 14:25 GGD (Rec: 03/06/18 15:04 GGD [id number]) Physical Therapy Treatment Education Education Provided Precautions M7 PT-IP Assessment and Plan Start: 03/03/18 11:37 Freq: Status: Active Protocol: Document 03/09/18 08:40 [facility] (Rec: 03/09/18 14:43 [facility] [id number]) PT Summary Assessment and Plan Summary Impairments Pain ROM Strength Balance Coordination Sensation Tone Cognition Bed Mobility Transfers Gait Activity Tolerance Progress Towards Goals Slow Progress due to Pain Slow Progress due to Medical Issues Slow Progress due to Activity Tolerance Assessment Summary Pt pain prevented her from ambulating. Pt able to transfer to left to [facility] then left to chair using stand pivot transfer. Goals Bed Mobility Goal Standby Assistance Transfer Goal Standby Assistance Front Wheeled Walker Gait Goal Standby Assistance Front Wheel Walker Gait Distance 100 Days to Meet Goals 5 Frequency of Treatment Frequency Of Treatment Twice a Day Treatment Plan Physical Therapy Treatment Plan Bed Mobility Training Transfer Training Gait Training Therapeutic Exercise Balance Retraining Post Op Education Discharge Planning Hot or Cold Pack Neuromuscular Re-ed Coordination Retraining Manual Therapy Recommendations To Nursing Amount of Assist Needed 2 Person Assist Discharge Recommendations PT Discharge Recommendations SNF Rehab
--- NOTE | 2018-03-09 15:35 | PT.IPTN ---
Current Diagnoses Scoliosis, unspecified (03/02/18) Spinal stenosis, lumbar region with neurogenic claudication (03/02/18) Surgery Performed Operation Date: 03/02/18 14:00 Actual Procedures p L1-2,L2-3,L3-4,L4-5 Anterior Instru. Fusion(XLIF)(Right) - Shon Roper MD Operation Date: 03/04/18 07:45 Actual Procedures p L1-2,L2-3,L3-4,L4-5,L5-S1 Posterior Instru. Fusion w/Bone Graft, L1-S1 Laminectomies - Shon Roper MD Physical Therapy Treatment Note M2 PT-IP Current Condition Start: 03/03/18 11:37 Freq: Status: Active Protocol: Document 03/05/18 14:00 AB (Rec: 03/05/18 17:28 AB [id number]) Physical Therapy Current Condition Current Condition Evaluation Date 03/03/18 Treatment Diagnosis s/p L1-L5 anterior/posterior fusion, difficulty in walking Onset Date 03/02/18 Precautions Lumbar Precautions Log Roll No Twisting Limit Bending Lifting Restriction of 10 lbs Gait Belt above Incisional Area M3 PT-IP Subjective Start: 03/03/18 11:37 Freq: Status: Active Protocol: Document 03/09/18 14:45 [facility] (Rec: 03/09/18 15:35 CLB [id number]) Subjective Physical Therapy Visit Type Type Treatment Note Visit Start Time 14:45 Visit Stop Time 15:10 Number of HAND LASTER Visits 6 Physical Therapy Visit Comments Patient Comments Pt needing to use BSC Therapy Pain Assessment Pain When Pain Assessed During Mobility Location Right Hip Intensity 9 Pain Behaviors Calling Out Facial Grimacing Moaning Restlessness Pain Management Techniques Modification of Treatment Re-positioning Timing of Activity with Medications M4 PT-IP Mobility and Gait Start: 03/03/18 11:37 Freq: Status: Active Protocol: Document 03/09/18 14:45 CLB (Rec: 03/09/18 15:35 CLB [id number]) PT-Transfer Assessment Sit to and From Stand Sit to and from Stand Moderate Assistance Maximum Assistance 2 Person Assistance Use of Upper Extremities Equipment Transfer Assistive Device Gait Belt Front Wheeled Walker Orthotic/Prosthetic Devices or Brace: No Transfers Transfer Destination Chair Bedside Commode Transfer Technique Stand Step Pivot Transfer Ability Level of Assist Moderate Assistance Maximum Assistance 2 Person Assistance Use of Upper Extremities Comments Mobility Comments Pt required Mod A x1 out of the chair but needed Mod A x3 out off BSC. Gait Assessment Comments Gait Comments Pt unable to ambulate due to pain. M5 PT-IP Objective Assessments Start: 03/03/18 11:37 Freq: Status: Active Protocol: Document 03/05/18 14:00 AB (Rec: 03/05/18 17:28 AB [id number]) Orientation Orientation/Cognition Level of Alertness Alert Orientation Name Age Birthday Month Date Year Day of Week Place Situation Safety Awareness Decreased Safety Awareness Gross Range of Motion Lower Extremity ROM Assessment Within Functional Limits Strength Lower Extremity Strength Assessment Bilaterally Impaired Comments Strength Comments BLE weakness R>L LLE: 4-/5 RLE 3+/5 Sensation Assessment Sensation Gross Sensation WNL M6 PT-IP Treatment Start: 03/03/18 11:37 Freq: Status: Active Protocol: Document 03/06/18 14:25 GGD (Rec: 03/06/18 15:04 GGD [id number]) Physical Therapy Treatment Education Education Provided Precautions M7 PT-IP Assessment and Plan Start: 03/03/18 11:37 Freq: Status: Active Protocol: Document 03/09/18 14:45 CLB (Rec: 03/09/18 15:35 CLB [id number]) PT Summary Assessment and Plan Summary Impairments Pain ROM Strength Balance Coordination Sensation Tone Cognition Bed Mobility Transfers Gait Activity Tolerance Progress Towards Goals Slow Progress due to Pain Slow Progress due to Medical Issues Slow Progress due to Activity Tolerance Assessment Summary Pt pain prevented her from ambulating this afternoon. Pt able to transfer to BSC and needed increased assist off BSC due to pain in R hip. Pt needed assistance with IV line and donning/doffing brief as well as pericare. Pt wanting to stay in chair as chair is more comfortable for her. Goals Bed Mobility Goal Standby Assistance Transfer Goal Standby Assistance Front Wheeled Walker Gait Goal Standby Assistance Front Wheel Walker Gait Distance 100 Days to Meet Goals 5 Frequency of Treatment Frequency Of Treatment Twice a Day Treatment Plan Physical Therapy Treatment Plan Bed Mobility Training Transfer Training Gait Training Therapeutic Exercise Balance Retraining Post Op Education Discharge Planning Hot or Cold Pack Neuromuscular Re-ed Coordination Retraining Manual Therapy Recommendations To Nursing Amount of Assist Needed 2 Person Assist Discharge Recommendations PT Discharge Recommendations SNF Rehab
--- NOTE | 2018-03-09 17:27 | PC.NURSE ---
Addendum entered by Sheryl Bradford R.N. 03/09/18 21:22: Pt resting at intervals this evening. Med at 2120 w/Dilaudid 4mg for 11/17 discomfort. IVF continue as per orders w/o incidence. Stable post op course. Call light w/in reach, bed alarm on for pt safety. Continue w/plan of care. Original Note: Addendum entered by Sheryl Bradford R.N. 03/09/18 17:51: Med at this time w/ DIlaudid 2mg po for discomfort. Original Note: Pt sitting in chair, Lungs clear/diminished at bases SpO2 95% RA. Dsg to surgical back CDI. IV NS infusing @ 100cc/hr via pump w/o incidence. Stable post op course. Call light w/in reach.
[2018-03-09] MEDS: SENNOSIDES 8.6 MG TABLET 17.2 MG PO (20:02)
[2018-03-09] MEDS: GABAPENTIN 300 MG CAPSULE PO (20:03)
[2018-03-09] MEDS: HYDROMORPHONE 4 MG TABLET PO (21:20)
[2018-03-10] MEDS: CIPROFLOXACIN 400 MG/200 ML PIGGYBACK 200 MG IV (01:41)
[2018-03-10] MEDS: HYDROMORPHONE 4 MG TABLET PO ×3 (02:24→12:14)
[2018-03-10 04:50] VITALS: BP 132/64; PULSE 82; RESP 16; TEMP 36.2; O2SAT 92
[2018-03-10] MEDS: BISACODYL 10 MG SUPP PR (07:40)
--- NOTE | 2018-03-10 07:46 | PM.PNPO.1 ---
Subjective Date Patient Seen: 03/10/18 Time Patient Seen: 07:46 Interval history: Pain better, not woozy. Still working on BM. Exam Vital Signs (past 8 hours): - 03/10/18 04:50 Temperature 97.2 F L Pulse Rate 82 Respiratory Rate 16 Blood Pressure 132/64 Pulse Oximetry 92 Fraction of Inspired Oxygen 21 Oxygen Delivery Method Room Air Oxygen Flow Rate 0 Const Orientation: alert and oriented x3 Back/Spine/Pelvis Other: dressing CDI Objective Labs Result Diagrams: 03/09/18 06:20 03/09/18 06:20 Labs: Laboratory Results - last 24 hr 03/09/18 09:00 Urine Color Yellow Urine Appearance Clear Urine pH 5.0 Ur Specific [place] 1.020 Urine Protein Negative Urine Glucose (UA) Negative Urine Ketones Negative Urine Occult Blood Trace-intact Urine Nitrate Negative Urine Bilirubin Negative Urine Urobilinogen 0.2 Ur Leukocyte Esterase 2+ H Urine RBC 1-5/hpf Urine WBC 30-100/hpf H Ur Squamous Epith Cells 1-5 /hpf Urine Bacteria Many (>30) H Ur Culture Indicated? Specimen cultured Micro UA Comment Not Reportable Urine Cx - serratia - sens to cipro. Also another Gm (-) being worked up. Assessment & Plan Post-op Postoperative Procedures Operation Date: 03/02/18 14:00 Actual Procedures Side Surgeon p L1-2,L2-3,L3-4,L4-5 Anterior Instru. Fusion(XLIF) Right Shon Roper MD Operation Date: 03/04/18 07:45 Actual Procedures Side Surgeon p L1-2,L2-3,L3-4,L4-5,L5-S1 Posterior Instru. Fusion w/Bone Graft, L1-S1 Laminectomies Shon Roper MD Switch to PO cipro at this point to still cover other Gm (-). OK to DC to SNF today
--- NOTE | 2018-03-10 08:02 | PM.DS.1 ---
History of Present Illness Date Patient Seen: 03/10/18 Time Patient Seen: 08:02 Chief complaint: [id number] Narrative: Patient has a history of lumbar stenosis and scoliosis. Discharge Providers Date of admission: 03/02/18 11:54 Consults: 03/04/18 16:33 Consult to Occupational Therapy Evaluate & Treat Comment: Physician Instructions: Evaluate and treat Consult to Physical Therapy Evaluate & Treat Comment: Physician Instructions: Evaluate and Treat Discharge provider: Shon Roper MD Discharge Date: 03/10/18 Summary Discharge Diagnosis: Lumbar stenosis and scoliosis Hospital Course: Admitted the hospital on 03/03/18 for a two-stage anterior and posterior L1 through S1 fusion and laminectomy. Stage II was on 03/05/2018. Postoperatively she had issues with pain control and nausea. She was slow to mobilize. She started doing better but then became woozy and had difficulty mobilizing. The urinalysis was checked and she had a urinary tract infection. She was started on ciprofloxacin. She was doing better by day of discharge. Status at Discharge Overall status at discharge: patient is not back to baseline Time Spent with Patient Less than 30 minutes Exam Vital Signs (past 8 hours): - 03/10/18 04:50 Temperature 97.2 F L Pulse Rate 82 Respiratory Rate 16 Blood Pressure 132/64 Pulse Oximetry 92 Fraction of Inspired Oxygen 21 Oxygen Delivery Method Room Air Oxygen Flow Rate 0 Back/Spine/Pelvis Other: Dressing CDI. 5/5 motor both lower extremities Objective Labs Result Diagrams: 03/09/18 06:20 03/09/18 06:20 Labs: Laboratory Results - last 24 hr 03/09/18 09:00 Urine Color Yellow Urine Appearance Clear Urine pH 5.0 Ur Specific [employer] 1.020 Urine Protein Negative Urine Glucose (UA) Negative Urine Ketones Negative Urine Occult Blood Trace-intact Urine Nitrate Negative Urine Bilirubin Negative Urine Urobilinogen 0.2 Ur Leukocyte Esterase 2+ H Urine RBC 1-5/hpf Urine WBC 30-100/hpf H Ur Squamous Epith Cells 1-5 /hpf Urine Bacteria Many (>30) H Ur Culture Indicated? Specimen cultured Micro UA Comment Not Reportable Discharge Plan Discharge Plan Patient Disposition: SNF Transfer to: [facility] Under care of provider: PCP Transportation: Facility vehicle Consult as needed: Dental, Hearing, Mental health, Podiatry and Vision I certify the postop hospital fci care is medically necessary on a continuing basis for any conditions for which he/ she received care during this hospitalization.: Yes The receiving facility has agreed to accept transfer and provide medical treatment.: Yes Discharge Med Rec/Prescriptions Prescriptions: New celecoxib [Celebrex] 200 mg Capsule 200 mg PO BID Qty: 0 RF: 0 docusate sodium 100 mg Capsule 100 mg PO BID Qty: 0 RF: 0 hydroxyzine pamoate 25 mg Capsule 25 mg PO Q4HR PRN (Reason: Nausea And Vomiting) Qty: 0 RF: 0 hydromorphone 2 mg Tablet 2 mg PO Q3H PRN (Reason: Pain, Severe (7-10)) Qty: 20 RF: 0 ciprofloxacin HCl 750 mg tablet 750 mg PO BID Qty: 14 RF: 0 Continue hydrochlorothiazide 25 mg Tablet 25 mg PO DAILY RF: 0 metronidazole 0.75 % Gel 1 applic TOPICAL DAILY RF: 0 Provider Discharge Instructions Diet: Diet as Tolerated Cold/Heat Therapy: Apply ice to surgical site 20 minutes at a time as needed Skin/Wound/Dressing Care Report to your healthcare provider any signs of infection, such as:: chills, fever, night sweats, increased pain and unusual drainage Dressing: may change dressing and shower prn Special Rehabilitation Services Reason for rehabilitation: Post-operative therapy Rehab type: Physical therapy and Occupational therapy Restrictions to mobility: WBAT, limit bending/twisting, lifting greater than 10 lbs. Visit Report/Discharge Packet Instructions: DI for Transforaminal Lumbar Interbody Fusion Discharge Data Attending Provider: Shon Roper Admit Date/Time: 03/02/18 11:54
[2018-03-10 09:00] VITALS: BP 133/58; PULSE 87; RESP 16; TEMP 36.8; O2SAT 98
[2018-03-10] MEDS: hydroCHLOROthiazide 25 MG TABLET PO (09:58)
[2018-03-10] MEDS: DOCUSATE 100 MG CAPSULE PO (09:58)
[2018-03-10] MEDS: CELECOXIB 200 MG CAPSULE PO (09:59)
[2018-03-10] MEDS: CIPROFLOXACIN 250 MG TABLET 750 MG PO (10:00)
[2018-03-10] MEDS: POTASSIUM CHLORIDE 20 MEQ TAB PO (10:01)
--- NOTE | 2018-03-10 11:20 | OT.IP.TRT ---
Current Diagnoses Scoliosis, unspecified (03/02/18) Spinal stenosis, lumbar region with neurogenic claudication (03/02/18) Surgery Performed Operation Date: 03/02/18 14:00 Actual Procedures p L1-2,L2-3,L3-4,L4-5 Anterior Instru. Fusion(XLIF)(Right) - Shon Roper MD Operation Date: 03/04/18 07:45 Actual Procedures p L1-2,L2-3,L3-4,L4-5,L5-S1 Posterior Instru. Fusion w/Bone Graft, L1-S1 Laminectomies - Shon Roper MD Occupational Therapy Treatment Note M2 OT-IP Current Condition Start: 03/03/18 13:30 Freq: Status: Active Protocol: Document 03/05/18 15:21 [facility] (Rec: 03/05/18 15:52 [facility] [id number]) Occupational Therapy Current Condition Current Condition Evaluation Date 03/05/18 Treatment Diagnosis Lumbar stenosis Diagnosis Onset Date 03/02/18 Post Operative Precautions Lumbar Precautions Log Roll No Twisting Limit Bending Lifting Restriction of 10 lbs Gait Belt above Incisional Area Other Precautions log roll Weight Bearing Status Weight Bearing Status Full Weight Bearing M3 OT- IP Subjective and Pain Start: 03/03/18 13:30 Freq: Status: Active Protocol: Document 03/10/18 11:02 [facility] (Rec: 03/10/18 11:20 [facility] [id number]) OT- Subjective Occupational Therapy Visit Type Type Treatment Note Visit Start Time 10:05 Visit Stop Time 10:00 Total Visit Minutes 55 Occupational Therapy Visit Comments Patient Comments Pt wanting to take a shower prior to leaving to skilled rehab. OT Pain Assessment Pain When Pain Assessed At Rest Pain Present Pain Present Pain Reported M4 OT- IP ADL's Start: 03/03/18 13:30 Freq: Status: Active Protocol: Document 03/10/18 11:02 [facility] (Rec: 03/10/18 11:20 [facility] [id number]) OT ADL-Dressing General Eval Upper Body Dressing Ability Minimal Assistance Lower Body Dressing Ability Total Assistance Areas Needing Assistance Underpants/Brief Socks Comments OT Dressing Comments Pt needing to hold to grab bar , stand and therefore dependent for LB dressing needs to pull up over her hips for brief. Educated pt to use industrial paramedic to assist for needs. AED given to pt. OT ADL-Toileting General Evaluation Areas Needing Assistance Manage Clothing Perform Perineal Hygiene Devices Toileting Assistive Devices Grab Bars Comments OT Toileting Comments Pt needing assist for completeness of hygiene. OT ADL-Bathing Bathing Type Bathing Type Shower General Evaluation Bathing Ability Moderate Assistance Areas Needing Assistance Retrieving/Setting Up Items Wash/Dry Back Wash/Dry Perineal Area Devices Bathing Equipment Long Handled Sponge or Cash Room Clerk Held Shower Sprayer Shower Chair with Arms Grab Bars Comments OT Bathing Comments Pt able to assist for needs but heavy use of grab bars while standing and needing therapist to assist for pericare needs. Pt still unsteady on her feet. M6 OT- IP Functional Cognition Start: 03/03/18 13:30 Freq: Status: Active Protocol: Document 03/10/18 11:02 [facility] (Rec: 03/10/18 11:20 [facility] [id number]) Cognitive Factors Limiting Selfcare Function Cognitive Ability Level of Alertness Alert Attention Span Ability Capable of Focused Attention Capable of Sustained Attention Ability to Follow Commands Able to Follow Multi-Step Commands Memory Description No Deficits Noted Safety Awareness Underestimates Need for Assistance Cognitive Comments Cognitive Assessment Comments Pt still needing vc to incorporate back precautions. M7 OT- IP Mobility and Balance Start: 03/03/18 13:30 Freq: Status: Active Protocol: Document 03/10/18 11:02 [facility] (Rec: 03/10/18 11:20 [facility] [id number]) OT-Transfer Assessment Sit to and From Stand Sit to and from Stand Moderate Assistance Maximum Assistance Transfers Transfer Ability Minimal Assistance Technique Transfer Destination Chair Shower Stall Toilet Transfer Technique Stand Step Pivot Devices Transfer Assistive Devices Gait Belt Front Wheeled Walker OT- Balance Assessment Sitting Balance and Reactions Static Sitting Balance Ability Normal Dynamic Sitting Balance Ability Good Standing Balance and Reactions Static Standing Balance Ability Fair Document 03/10/18 11:02 [facility] (Rec: 03/10/18 11:20 [facility] [id number]) OT Summary Assessment and Plan Potential Rehabilitation Potential Good Analytic Complexity at Evaluation Moderate Summary OT Impairments Pain Strength Balance Functional Cognition Functional Mobility Grooming Dressing Toileting Bathing Toilet Transfers Shower Transfers Progress Towards Goals Slow Progress due to Medical Issues Slow Progress due to Activity Tolerance Assessment Summary Pt going to skilled rehab today. Goals Days to Meet Goals 1 Frequency of Treatment Frequency Of Treatment Once a Day Treatment Plan OT Treatment Plan ADL Training Functional Cognition Training Functional Mobility Patient/Family Education Discharge Planning Discharge Recommendations OT Discharge Recommendations SNF Rehab
--- NOTE | 2018-03-10 12:58 | PT.IPTN ---
Current Diagnoses Scoliosis, unspecified (03/02/18) Spinal stenosis, lumbar region with neurogenic claudication (03/02/18) Surgery Performed Operation Date: 03/02/18 14:00 Actual Procedures p L1-2,L2-3,L3-4,L4-5 Anterior Instru. Fusion(XLIF)(Right) - Shon Roper MD Operation Date: 03/04/18 07:45 Actual Procedures p L1-2,L2-3,L3-4,L4-5,L5-S1 Posterior Instru. Fusion w/Bone Graft, L1-S1 Laminectomies - Shon Roper MD Physical Therapy Treatment Note M2 PT-IP Current Condition Start: 03/03/18 11:37 Freq: Status: Active Protocol: Document 03/05/18 14:00 [facility] (Rec: 03/05/18 17:28 [facility] [id number]) Physical Therapy Current Condition Current Condition Evaluation Date 03/03/18 Treatment Diagnosis s/p L1-L5 anterior/posterior fusion, difficulty in walking Onset Date 03/02/18 Precautions Lumbar Precautions Log Roll No Twisting Limit Bending Lifting Restriction of 10 lbs Gait Belt above Incisional Area M3 PT-IP Subjective Start: 03/03/18 11:37 Freq: Status: Active Protocol: Document 03/10/18 12:56 [facility] (Rec: 03/10/18 12:58 SA [id number]) Subjective Physical Therapy Visit Type Type Patient Refusal Visit Start Time 11:10 Notes Pt to d/c in about an hour, declined PT as she is tired having just showered with OT. Plan is to d/c to SNF for continued therapy. M4 PT-IP Mobility and Gait Start: 03/03/18 11:37 Freq: Status: Active Protocol: Document 03/09/18 14:45 [facility] (Rec: 03/09/18 15:35 [facility] [id number]) PT-Transfer Assessment Sit to and From Stand Sit to and from Stand Moderate Assistance Maximum Assistance 2 Person Assistance Use of Upper Extremities Equipment Transfer Assistive Device Gait Belt Front Wheeled Walker Orthotic/Prosthetic Devices or Brace: No Transfers Transfer Destination Chair Bedside Commode Transfer Technique Stand Step Pivot Transfer Ability Level of Assist Moderate Assistance Maximum Assistance 2 Person Assistance Use of Upper Extremities Comments Mobility Comments Pt required Mod A x1 out of the chair but needed Mod A x3 out off BSC. Gait Assessment Comments Gait Comments Pt unable to ambulate due to pain. M5 PT-IP Objective Assessments Start: 03/03/18 11:37 Freq: Status: Active Protocol: Document 03/05/18 14:00 AB (Rec: 03/05/18 17:28 AB [id number]) Orientation Orientation/Cognition Level of Alertness Alert Orientation Name Age Birthday Month Date Year Day of Week Place Situation Safety Awareness Decreased Safety Awareness Gross Range of Motion Lower Extremity ROM Assessment Within Functional Limits Strength Lower Extremity Strength Assessment Bilaterally Impaired Comments Strength Comments BLE weakness R>L LLE: 4-/5 RLE 3+/5 Sensation Assessment Sensation Gross Sensation WNL M6 PT-IP Treatment Start: 03/03/18 11:37 Freq: Status: Active Protocol: Document 03/06/18 14:25 [facility] (Rec: 03/06/18 15:04 GGD [id number]) Physical Therapy Treatment Education Education Provided Precautions M7 PT-IP Assessment and Plan Start: 03/03/18 11:37 Freq: Status: Active Protocol: Document 03/09/18 14:45 [facility] (Rec: 03/09/18 15:35 [facility] [id number]) PT Summary Assessment and Plan Summary Impairments Pain ROM Strength Balance Coordination Sensation Tone Cognition Bed Mobility Transfers Gait Activity Tolerance Progress Towards Goals Slow Progress due to Pain Slow Progress due to Medical Issues Slow Progress due to Activity Tolerance Assessment Summary Pt pain prevented her from ambulating this afternoon. Pt able to transfer to BSC and needed increased assist off BSC due to pain in R hip. Pt needed assistance with IV line and donning/doffing brief as well as pericare. Pt wanting to stay in chair as chair is more comfortable for her. Goals Bed Mobility Goal Standby Assistance Transfer Goal Standby Assistance Front Wheeled Walker Gait Goal Standby Assistance Front Wheel Walker Gait Distance 100 Days to Meet Goals 5 Frequency of Treatment Frequency Of Treatment Twice a Day Treatment Plan Physical Therapy Treatment Plan Bed Mobility Training Transfer Training Gait Training Therapeutic Exercise Balance Retraining Post Op Education Discharge Planning Hot or Cold Pack Neuromuscular Re-ed Coordination Retraining Manual Therapy Recommendations To Nursing Amount of Assist Needed 2 Person Assist Discharge Recommendations PT Discharge Recommendations SNF Rehab
--- NOTE | 2018-03-10 13:15 | PC.NURSE ---
Addendum entered by Pam Marshall R.N. 03/10/18 15:18: received call back from zohaib fong report given to ann marie Original Note: Day Shift Pt this morning continued to be constipated slightly nauseated and abdomen pain, has + BT and is passing flatus, accepted suppository with large result and reports nausea and abdominal pain improved. pt ambulated from right side of bed to left and sat in chair. dressing to back changed. 1315 pt left via w/c with care-me for zohaib fong, called from report but awaiting call back
== END 2018-03-10 13:32 | DRG 454 ==
PROVIDERS: Physician Assistant; Admitting Provider Orthopaedic Surgery; Visit Provider Orthopaedic Surgery
PROC: 0SG00A0 Fusion of Lumbar Vertebral Joint with Interbody Fusion Device, Anterior Approach, Anterior Column, Open Approach (ICD-10-PCS; CPT 22558; principal; 2018-03-02 14:00)
PROC: 0SG1071 Fusion of 2 or more Lumbar Vertebral Joints with Autologous Tissue Substitute, Posterior Approach, Posterior Column, Open Approach (ICD-10-PCS; principal; 2018-03-04 07:45)
DX: M48.062 Spinal stenosis, lumbar region with neurogenic claudication (principal); D62 Acute posthemorrhagic anemia; T83.511A Infection and inflammatory reaction due to indwelling urethral catheter, initial encounter; Z68.41 Body mass index [BMI] 40.0-44.9, adult; E66.01 Morbid (severe) obesity due to excess calories; M41.9 Scoliosis, unspecified; I10 Essential (primary) hypertension
CPT/HCPCS: 36415; 71045; 72100; 76001; 80048; 81001; 85014; 85018; 85025; 87077; 87086; 87186; 94660; 94760; 97116; 97161; 97162; 97166; 97530; 97535; C1776; C9290; J0330; J0595; J0690; J0744; J1100; J1170; J2060; J2250; J2274; J2310; J2405; J2704; J2765; J3010; J8501